=== PATIENT | female | born 1935 | race Caucasian/White ===

== ENCOUNTER 2017-01-17 07:03 | Day surgery (SDC) | payer MEDICARE, OTHER ==
[~2017-01-17 07:03] MED LIST: BUPIVACAINE HCL 0.75% INJ/PF (7.5 MG/1 ML) 10 ML SDV OS PRN; LIDOCAINE 4% INJ/PF (40 MG/ML) 5 ML AMPUL OS PRN; MIDAZOLAM 2 MG/2 ML INJ ONE
[2017-01-17] MEDS ORDERED: EPINEPHRINE INJ/PF 1 MG/1 ML AMPULE ONE (07:13)
[2017-01-17] MEDS ORDERED: CHONDR SU A NA/HYALUR INTRAOC KIT (SURGICARE) ONE (07:14)
[2017-01-17] MEDS: CYCLOPENTOLATE 0.2%/PHENYLEPHRINE 1% OPH SOLN 2 ML OS PRN ×3 (07:52→08:12)
[2017-01-17] MEDS: TROPICAMIDE 1% OPH SOLN 3 ML OS PRN ×3 (07:52→08:12)
[2017-01-17] MEDS: BESIFLOXACIN HCL 0.6% OPH SUSP 5 ML BOTTLE OS PRN ×3 (07:52→09:00)
[2017-01-17] MEDS: LIDOCAINE 3.5% OPH GEL/PF 1 ML/TUBE OS PRN ×2 (07:53→08:12)
[2017-01-17] MEDS: KETOROLAC TROMETHAMINE 0.45% 4 DROP/0.4 ML DROPERETTE OS PRN ×2 (07:53→09:17)
--- NOTE | 2017-01-17 09:13 | [facility] DISCHARGE SUMMARY E ---
[facility] Discharge Summary NAME: SHADE QUICK AGE: 81Y ADMITTED: 01/17/2017 DISCHARGED: 01/17/2017 FINAL DIAGNOSIS: Cataract, left eye. HOSPITAL COURSE: The patient is an 81-year-old lady who underwent uneventful cataract extraction with intraocular lens implant, left eye, on 01/17/2017. She will be discharged to home. She was instructed to resume preoperative medications, to take Tylenol as needed for discomfort, to keep her eye shielded, to use Besivance, Durezol and Ilevro at 3 p.m. and 8 p.m., and to follow up in my office in 1 day. DICTATING PHYSICIAN: MITCH BOWDEN M.D. [id number] PHY#: [id number] ID: [id number] JOB#: [id number] ACCT: [id number] cc:MITCH BOWDEN M.D. >
--- NOTE | 2017-01-17 09:14 | [facility] OPERATIVE REPORT E ---
[facility] Operative Report NAME: SHADE QUICK AGE: 81Y DATE OF SURGERY: 01/17/2017 ROOM: PREOPERATIVE DIAGNOSIS: Cataract, left eye. POSTOPERATIVE DIAGNOSIS: Cataract, left eye. PROCEDURE PERFORMED: Phacoemulsification with posterior chamber intraocular lens, left eye. SURGEON: MITCH BOWDEN M.D. ANESTHESIA: Topical with MAC. INDICATIONS FOR SURGERY: Difficulty reading captions on TV. Best corrected visual acuity 20/70. PROCEDURE: The patient was brought to the Operating Room and placed on the operative table. Following tetracaine drops, topical anesthesia was administered. This consisted of instrument wipe pledgets soaked in a solution of 4% Xylocaine mixed with 0.75% Marcaine in a 1:2 ratio. A 2 x 1 cm pledget was placed in the superior fornix. A 1 x 1 cm pledget was placed in the inferior fornix. The eye was patched shut for 5 minutes. The patch was removed. The eye was sterilely prepped and draped in the usual manner. Lid speculum was placed in the eye. The pledgets were removed and 4-0 black silk sutures were placed around the superior and the inferior rectus muscles to be used as traction. A conjunctival peritomy was made at the 10 o'clock position. Hemostasis was obtained with bipolar cautery. A posterior limbal groove was created using a crescent knife and dissected anteriorly towards the cornea. A sharp point blade was used to create a paracentesis site at the 2 o'clock position. A 2.4 mm keratome was used to enter the anterior chamber through the groove. Viscoelastic was injected into the anterior chamber. An anterior capsulotomy was performed using Utrata forceps in a capsulorrhexis fashion. Hydrodissection and hydrodelineation were performed. Phacoemulsification was performed in [id number]-gdu-[id number] technique. A total of 54 seconds phaco time was used. Following this, the I/A unit was used to remove residual cortex. Viscoelastic was injected into the capsular bag. Intraocular lens model SN60WF, 21.0 diopters, serial number [id number], was placed in the capsular bag. The I/A unit was used to remove residual viscoelastic. The wound was seen to be watertight under high and low pressure, and no sutures were placed. The intraocular lens was well centered. The pressure was adjusted in the eye to normal pressure. The 4-0 black silk sutures and lid speculum were removed. The eye was shielded after Besivance drops were placed. The patient tolerated the procedure well and was sent to the Recovery Room in good condition. DICTATING PHYSICIAN: MITCH BOWDEN M.D. [id number] PHY#: [id number] ID: [id number] JOB#: [id number] ACCT: [id number] cc:MITCH BOWDEN M.D. >
== END 2017-01-17 10:00 | disposition home or self-care (01) ==
LOC: SC 07:03
PROVIDERS: ATTEND Ophthalmology
PROC: 08RK3JZ Replacement of Left Lens with Synthetic Substitute, Percutaneous Approach (ICD-10-PCS; principal; 2017-01-17 08:15)
DX: H25.812 Combined forms of age-related cataract, left eye (principal); Z88.5 Allergy status to narcotic agent
CPT/HCPCS: 66984; V2632; J2250; J3490 ×3; A9270 ×2; J0171; 142

== ENCOUNTER 2017-02-14 07:07 | Day surgery (SDC) | payer MEDICARE, OTHER ==
[~2017-02-14 07:07] MED LIST changes: +BUPIVACAINE HCL 0.75% INJ/PF (7.5 MG/1 ML) 10 ML SDV OD PRN; -BUPIVACAINE HCL 0.75% INJ/PF (7.5 MG/1 ML) 10 ML SDV OS PRN; +KETOROLAC TROMETHAMINE 0.45% 4 DROP/0.4 ML DROPERETTE OD PRN; +LIDOCAINE 4% INJ/PF (40 MG/ML) 5 ML AMPUL OD PRN; -LIDOCAINE 4% INJ/PF (40 MG/ML) 5 ML AMPUL OS PRN; -MIDAZOLAM 2 MG/2 ML INJ ONE
[2017-02-14] MEDS ORDERED: PHENYLEPHRINE/KETOROLAC 1%-0.3% 4 ML VIAL ONE (07:35)
[2017-02-14] MEDS ORDERED: LIDOCAINE 1% INJ-PF (10 MG/ML) 30 ML SDV ONE (07:35)
[2017-02-14] MEDS: TROPICAMIDE 1% OPH SOLN 3 ML OD PRN ×3 (07:41→08:01)
[2017-02-14] MEDS: BESIFLOXACIN HCL 0.6% OPH SUSP 5 ML BOTTLE OD PRN ×4 (07:41→08:54)
[2017-02-14] MEDS: CYCLOPENTOLATE 0.2%/PHENYLEPHRINE 1% OPH SOLN 2 ML OD PRN ×3 (07:41→08:01)
[2017-02-14] MEDS: TETRACAINE HCL 0.5% OPH SOLN 0.6 ML DROPERETTE OD PRN ×2 (07:42→08:01)
[2017-02-14] MEDS ORDERED: MIDAZOLAM 2 MG/2 ML INJ ONE (08:05)
[2017-02-14] MEDS: CHONDR SU A NA/HYALUR INTRAOC KIT (SURGICARE) ONE ×2 (08:44)
--- NOTE | 2017-02-14 09:13 | [facility] OPERATIVE REPORT E ---
[facility] Operative Report NAME: SHADE QUICK AGE: 81Y DATE OF SURGERY: 02/14/2017 ROOM: PREOPERATIVE DIAGNOSIS: Cataract, right eye. POSTOPERATIVE DIAGNOSIS: Cataract, right eye. PROCEDURE PERFORMED: Phacoemulsification with posterior chamber intraocular lens, right eye. SURGEON: MITCH BOWDEN M.D. ANESTHESIA: Topical with MAC. INDICATIONS FOR SURGERY: Difficulty with depth perception and imbalance following cataract surgery in the left eye. DESCRIPTION OF PROCEDURE: The patient was brought to the Operating Room and placed on the operative table. Following tetracaine drops, topical anesthesia was administered. This consisted of instrument wipe pledgets soaked in a solution of 4% Xylocaine mixed with 0.75% Marcaine in a 1:2 ratio. A 2 x 1 cm pledget was placed in the superior fornix. A 1 x 1 cm pledget was placed in the inferior fornix. The eye was patched shut for 5 minutes. The patch was removed. The eye was sterilely prepped and draped in the usual manner. Lid speculum was placed in the eye. The pledgets were removed. 4-0 black silk sutures were placed around the superior and the inferior rectus muscles to be used as traction. A conjunctival peritomy was made at the 10 o'clock position. Hemostasis was obtained with bipolar cautery. A posterior limbal groove was created using a crescent knife and dissected anteriorly towards the cornea. A sharp point blade was used to create a paracentesis site at the 2 o'clock position. A 2.4 mm keratome was used to enter the anterior chamber through the groove. Viscoelastic was injected into the anterior chamber. An anterior capsulotomy was performed using Utrata forceps in a capsulorrhexis fashion. Hydrodissection and hydrodelineation were performed. Phacoemulsification was performed in vcrhbj-ten-yymzssf technique. A total of 50 seconds phaco time was used. Following this, the I/A unit was used to remove residual cortex. Viscoelastic was injected into the capsular bag. Intraocular lens model SN60WF, 21.0 diopters, serial number [id number] was placed in the capsular bag. The I/A unit was used to remove residual viscoelastic. The wound was seen to be watertight under high and low pressure, and no sutures were placed. The intraocular lens was well centered. The pressure was adjusted in the eye to normal pressure. The 4-0 black silk sutures and lid speculum were removed. The eye was shielded after Besivance drops were placed. The patient tolerated the procedure well and was sent to the Recovery Room in good condition. DICTATING PHYSICIAN: MITCH BOWDEN M.D. [id number] PHY#: [id number] ID: [id number] JOB#: [id number] ACCT: [id number] cc:MITCH BOWDEN M.D. >
--- NOTE | 2017-02-14 09:13 | [facility] DISCHARGE SUMMARY E ---
[facility] Discharge Summary NAME: SHADE QUICK AGE: 81Y ADMITTED: 02/14/2017 DISCHARGED: 02/14/2017 HOSPITAL COURSE: The patient is an 81-year-old lady who underwent uneventful cataract extraction with intraocular lens implant right eye on 02/14/2017. She will be discharged to home. She is instructed to resume preoperative medications, to take Tylenol as needed for discomfort, to keep her eye shielded, to use Besivance, Durezol, and Ilevro at 3 p.m. and 8 p.m., and to follow up in my office in 1 day. DICTATING PHYSICIAN: MITCH BOWDEN M.D. [id number] PHY#: [id number] ID: [id number] JOB#: [id number] ACCT: [id number] cc:MITCH BOWDEN M.D. >
== END 2017-02-14 09:38 | disposition home or self-care (01) ==
LOC: SC 07:07
PROVIDERS: ATTEND Ophthalmology
PROC: 08RJ3JZ Replacement of Right Lens with Synthetic Substitute, Percutaneous Approach (ICD-10-PCS; principal; 2017-02-14 08:30)
DX: H25.811 Combined forms of age-related cataract, right eye (principal); Z96.1 Presence of intraocular lens; Z86.73 Personal history of transient ischemic attack (TIA), and cerebral infarction without residual deficits; I10 Essential (primary) hypertension; E07.9 Disorder of thyroid, unspecified; Z79.899 Other long term (current) drug therapy; Z79.82 Long term (current) use of aspirin; Z79.1 Long term (current) use of non-steroidal anti-inflammatories (NSAID); Z85.038 Personal history of other malignant neoplasm of large intestine; Z90.49 Acquired absence of other specified parts of digestive tract
CPT/HCPCS: 66984; V2632; J2250; J3490 ×4; A9270; C9447; 142

== ENCOUNTER → 2017-08-16 | Outpatient (CLI) | payer MEDICARE, OTHER ==
--- NOTE | 2017-08-16 13:34 | WOMENS IMAGING REPORT ---
EXAM DESCRIPTION: BONE DENSITY HIP/SPINE COMPLETED DATE/TIME: 08/16/2017 1:19 pm REASON FOR STUDY: OSTEOPOROSIS Z12.31 ENCNTR SCREEN MAMMOGRAM FOR MALIGNANT NEOPLASM OF ARTHUR M81.0 AGE-RELATED OSTEOPOROSIS W/O CURRENT PATHOLOGICAL FRAC COMPARISON: December 2013 TECHNIQUE: Dual-Energy X-ray Absorptiometry (DEXA) of the AP Spine and Hip. LIMITATIONS: None. FINDINGS: LUMBAR SPINE: The bone mineral density (BMD) measured from L1-L4 in the AP projection correlates with a T-score of -0.1, which is normal as defined by the World Health Organization. 7.6% increase as compared to the previous study HIP: The bone mineral density (BMD) measured in the left hip correlates with a T-score of -3.1, which is o steoporosis as defined by the World Health Organization. -0.5% decrease as compared to the previous study IMPRESSION: 1. LUMBAR SPINE: Normal 2. HIP: Osteoporosis COMMENT: The World Health Organization defines low BMD as follows: T-score: Normal: Greater than -1.0 Osteopenia: Between -1.0 and -2.5 Osteoporosis: Less than -2.5 without fractures Established osteoporosis: Less than -2.5 with fractures In general, you may wish to consider: Diagnosis Treatment Follow-up DEXA Normal BMD Prevention 2-3 years Osteopenia Prevention/Therapy 1-2 years Osteoporosis Therapy Yearly TECHNICAL DOCUMENTATION: JOB ID: [id number] [employer]- All Rights Reserved Reading location - IP/workstation name: [email or web address]
--- NOTE | 2017-08-16 17:01 | WOMENS IMAGING REPORT ---
EXAM DESCRIPTION: 3D SCREENING MAMMO BILAT COMPLETED DATE/TIME: 08/16/2017 1:19 pm REASON FOR STUDY: SCREENING MAMMO Z12.31 ENCNTR SCREEN MAMMOGRAM FOR MALIGNANT NEOPLASM OF ARTHUR M81. 0 AGE-RELATED OSTEOPOROSIS W/O CURRENT PATHOLOGICAL FRAC COMPARISON: 2010 to 2014 TECHNIQUE: Standard craniocaudal and mediolateral oblique views of each breast recorded using digita l acquisition and breast tomosynthesis. LIMITATIONS: None. FINDINGS: No masses, calcifications or architectural distortion. No areas of suspicion. Read with the assistance of CAD. .[facility] - R2 Cenova Version 1.3 .[facility] - R2 Cenova Version 1.3 .[facility] - R2 Cenova Version 2.4 .[facility] [place]2 Cenova Version 2.4 .[facility] - R2 Organ Grinder Version 9.2 IMPRESSION: NORMAL MAMMOGRAM. BIRADS 1. BREAST DENSITY: b. There are scattered areas of fibroglandular density. BIRAD: 1 NEGATIVE RECOMMENDATION: ROUTINE SCREENING COMMENT: The patient has been notified of the results by letter per SA requirements. Additional no tification policies are in place for contacting patient with suspicious or incomplete findings. Quality ID #[id number]: The [employer] recommends an annual screening mammogram for women aged 40 years or over. This facility utilizes a reminder system to ensure that all patients receive reminder letters, and/or direct phone calls for appointments. This includes reminders for routine scr eening mammograms, diagnostic mammograms, or other Breast Imaging Interventions when appropriate. Th is patient will be placed in the appropriate reminder system. The [employer] (ACR) has developed recommendations for screening MRI of the breast s in certain patient populations, to be used in conjunction with mammography. Breast MRI surveillanc e may be appropriate for women with more than 20% lifetime risk of developing breast cancer as deter mined by genetic testing, significant family history of the disease, or history of mantle radiation f or Hodgkins Disease. ACR Practice Guidelines 2008. DBT Technology DBT is a type of tomographic mammography. With conventional mammography, overlapping breast tissue ma y make lesions difficult to detect, even with good compression. DBT uses an x-ray tube that rotates a round the breast, taking images at different angles. These images are then combined to create thin sl ices of the breast that the radiologist can view as a 3D reconstruction. The Clever[employer] unit can perform full-field digital mammograms (2D imaging); or DBT (3D imaging); or both, in a combination mode that quickly performs both the mammogram and the tomosynthesis scan while the breast is still compressed. PQRS 6045F: Fluoroscopic imaging is not utilized for breast tomosynthesis. TECHNICAL DOCUMENTATION: FINDING NUMBER: (1) ASSESSMENT: (1) JOB ID: [id number] [employer]- All Rights Reserved Reading location - IP/workstation name: [email or web address]
== END ==
LOC: WI 12:40
PROVIDERS: ATTEND Internal Medicine
DX: Z12.31 Encounter for screening mammogram for malignant neoplasm of breast (principal); M81.0 Age-related osteoporosis without current pathological fracture
CPT/HCPCS: 77063; 77067; 77080

== ENCOUNTER → 2018-10-11 | Outpatient (CLI) | payer MEDICARE, OTHER | LOC: WI 09:09 | PROVIDERS: ATTEND Internal Medicine | DX: Z12.31 Encounter for screening mammogram for malignant neoplasm of breast (principal); R41.3 Other amnesia | CPT/HCPCS: 77063; 77067 ==

== ENCOUNTER 2019-11-07 09:47 | Emergency (ER) | payer MEDICARE ==
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
[2019-11-07 10:36] LABS: ABSOLUTE EOSINOPHILS # (AUTO) 0.1 10^3/uL (0.0-0.6); ABSOLUTE LYMPHOCYTES (AUTO) 0.9 10^3/uL (0.5-4.7); ABSOLUTE MONOCYTES (AUTO) 0.3 10^3/uL (0.1-1.4); ABSOLUTE NEUT (AUTO) 5.1 10^3/uL (1.7-8.2); BASOPHILS % (AUTO) 0.4 % (0-2); EOSINOPHILS % (AUTO) 2.2 % (0-6); HEMATOCRIT 38.3 % (36.0-47.0); HEMOGLOBIN 13.1 g/dL (12.0-15.5); LYMPHOCYTES % (AUTO) 13.3 % (13-45); MEAN CORPUSCULAR HGB CONC 34.1 g/dL (32.0-36.0); MEAN CORPUSCULAR VOLUME 88 fl (80-97); MONOCYTES % (AUTO) 5.4 % (3-13); PLATELET COUNT 140 10^3/uL (150-450); RED BLOOD COUNT 4.36 10^6/uL (3.72-5.28); RED CELL DISTRIBUTION WIDTH 14.4 % (11.5-14.0); SEGMENTED NEUTROPHILS % (AUTO) 78.7 % (42-78); TOTAL CELLS COUNTED % (AUTO) 100 %; WHITE BLOOD COUNT 6.4 10^3/uL (4.0-10.5)
[2019-11-07 10:45] LABS: ANION GAP 6 (5-19); BLOOD UREA NITROGEN 35 mg/dL (7-20); CALCIUM 9.5 mg/dL (8.4-10.2); CARBON DIOXIDE 24 mmol/L (22-30); CHLORIDE 111 mmol/L (98-107); GLUCOSE 117 mg/dL (75-110); POTASSIUM 4.4 mmol/L (3.6-5.0)
[2019-11-07 11:16] LABS: APPEARANCE,URINE CLEAR; BILIRUBIN,URINE NEGATIVE (NEGATIVE); COLOR,URINE YELLOW; GLUCOSE, URINE NEGATIVE (NEGATIVE); KETONES,URINE NEGATIVE (NEGATIVE); PROTEIN,URINE NEGATIVE (NEGATIVE); URINE SPECIFIC GRAVITY 1.018; UROBILINOGEN,URINE NEGATIVE mg/dL (<2.0)
--- NOTE | 2019-11-07 11:39 | RADIOLOGY REPORT (SQ) ---
EXAM DESCRIPTION: CT HEAD WITH IMAGES COMPLETED DATE/TIME: 11/07/2019 11:18 am REASON FOR STUDY: AMS behavioral warren r/o SDH COMPARISON: CT brain 11/04/2010 TECHNIQUE: Axial images acquired through the brain with intravenous contrast. Images reviewed with b one, brain and subdural windows. Additional sagittal and coronal reconstructions were generated. Lexii ges stored on PACS. All CT scanners at this facility use dose modulation, iterative reconstruction, and/or weight based d osing when appropriate to reduce radiation dose to as low as reasonably achievable (ALARA). [facility]: Dose Right [facility]: CareDose [facility]: Dose Right [facility]: Teradose 4D [facility]: Associated Content CONTRAST TYPE AND DOSE: contrast/concentration: Isovue 350.00 mmol/ml; Total Contrast Delivered: 50. 0 ml; Total Saline Delivered: 50.0 ml RENAL FUNCTION: Creatinine 1.3 RADIATION DOSE: CT Rad equipment meets quality standard of care and radiation dose reduction techniq ues were employed. CTDIvol: 53.2 mGy. DLP: 2034 mGy-cm.. LIMITATIONS: None. FINDINGS: VENTRICLES: Normal size and contour. CEREBRUM: No CT evidence of acute large territory ischemic change, acute intracranial hemorrhage, mas s effect, or midline shift. Old small left posterior temporal cortical infarct on axial image 21, sagittal image 52. Minimal age-appropriate deep periventricular white matter disease. CEREBELLUM: No masses. No hemorrhage. No alteration of density. No evidence for acute infarction. No enhancing lesions. EXTRA-AXIAL SPACES: No fluid collections. No enhancing lesions. ORBITS AND GLOBE: No intra- or extraconal masses. Post cataract surgery CALVARIUM: No fracture. PARANASAL SINUSES: No fluid or mucosal thickening. SOFT TISSUES: No mass or hematoma. OTHER: No other significant finding. IMPRESSION: No acute findings. No CT evidence of acute or chronic extra-axial fluid collection EVIDENCE OF ACUTE STROKE: NO. TECHNICAL DOCUMENTATION: JOB ID: [id number] Quality ID # [id number]: Final reports with documentation of one or more dose reduction techniques (e.g., Au tomated exposure control, adjustment of the mA and/or kV according to patient size, use of iterative reconstruction technique) 2010 [employer]- All Rights Reserved Reading location - IP/workstation name: [email or web address]
[2019-11-07 12:08] VITALS: BP 190/86
== END 2019-11-07 12:05 | disposition home or self-care (01) ==
LOC: ER 09:47
DX: F03.91 Unspecified dementia, unspecified severity, with behavioral disturbance (principal); Z63.4 Disappearance and death of family member; I10 Essential (primary) hypertension; Z87.440 Personal history of urinary (tract) infections; Z88.6 Allergy status to analgesic agent; Z88.5 Allergy status to narcotic agent
CPT/HCPCS: 36415; 70460; 80048; 81001; 84443; 85025; 99285

== ENCOUNTER 2019-11-22 10:38 | Emergency (ER) | payer MEDICARE ==
[2019-11-22 11:29] LABS: ABSOLUTE EOSINOPHILS # (AUTO) 0.1 10^3/uL (0.0-0.6); ABSOLUTE LYMPHOCYTES (AUTO) 0.8 10^3/uL (0.5-4.7); ABSOLUTE MONOCYTES (AUTO) 0.4 10^3/uL (0.1-1.4); ABSOLUTE NEUT (AUTO) 5.5 10^3/uL (1.7-8.2); APPEARANCE,URINE CLEAR; BASOPHILS % (AUTO) 0.4 % (0-2); BILIRUBIN,URINE NEGATIVE (NEGATIVE); COLOR,URINE YELLOW; EOSINOPHILS % (AUTO) 1.4 % (0-6); GLUCOSE, URINE NEGATIVE (NEGATIVE); HEMATOCRIT 38.7 % (36.0-47.0); KETONES,URINE NEGATIVE (NEGATIVE); LEUKOCYTE ESTERASE,URINE NEGATIVE (NEGATIVE); LYMPHOCYTES % (AUTO) 12.1 % (13-45); MEAN CORPUSCULAR HEMOGLOBIN 29.7 pg (27.0-33.4); MEAN CORPUSCULAR HGB CONC 33.5 g/dL (32.0-36.0); MEAN CORPUSCULAR VOLUME 89 fl (80-97); MONOCYTES % (AUTO) 6.3 % (3-13); NITRITE,URINE NEGATIVE (NEGATIVE); PLATELET COUNT 151 10^3/uL (150-450); PROTEIN,URINE 30 mg/dL (NEGATIVE); RED BLOOD COUNT 4.36 10^6/uL (3.72-5.28); RED CELL DISTRIBUTION WIDTH 14.6 % (11.5-14.0); SEGMENTED NEUTROPHILS % (AUTO) 79.8 % (42-78); TOTAL CELLS COUNTED % (AUTO) 100 %; URINE SPECIFIC GRAVITY 1.021; WHITE BLOOD COUNT 6.9 10^3/uL (4.0-10.5)
[2019-11-22 11:48] LABS: ACETAMINOPHEN < 10 ug/mL (10-30); ALBUMIN 4.1 g/dL (3.5-5.0); ALCOHOL < 10 mg/dL (NONE DETECTED); ALKALINE PHOSPHATASE 65 U/L (38-126); ANION GAP 6 (5-19); ASPARTATE AMINO TRANSFERASE 22 U/L (14-36); BILIRUBIN,TOTAL 0.6 mg/dL (0.2-1.3); BLOOD UREA NITROGEN 39 mg/dL (7-20); CALCIUM 9.4 mg/dL (8.4-10.2); CARBON DIOXIDE 25 mmol/L (22-30); CHLORIDE 110 mmol/L (98-107); GLUCOSE 102 mg/dL (75-110); POTASSIUM 4.6 mmol/L (3.6-5.0); TOTAL PROTEIN 6.8 g/dL (6.3-8.2)
--- NOTE | 2019-11-22 12:13 | RADIOLOGY REPORT (SQ) ---
EXAM DESCRIPTION: CHEST SINGLE VIEW IMAGES COMPLETED DATE/TIME: 11/22/2019 11:44 am REASON FOR STUDY: Altered mental status COMPARISON: None. EXAM PARAMETERS: NUMBER OF VIEWS: One view. TECHNIQUE: Single frontal radiographic view of the chest acquired. RADIATION DOSE: NA LIMITATIONS: None. FINDINGS: LUNGS AND PLEURA: There is some patchy opacification in the medial left base. MEDIASTINUM AND HILAR STRUCTURES: No masses. Contour normal. HEART AND VASCULAR STRUCTURES: Heart normal in size. Normal vasculature. BONES: No acute findings. HARDWARE: None in the chest. OTHER: No other significant finding. IMPRESSION: Cannot exclude airspace disease in the medial left base, atelectasis versus pneumonia. TECHNICAL DOCUMENTATION: JOB ID: [id number] 2010 [employer]- All Rights Reserved Reading location - IP/workstation name: [email or web address]
--- NOTE | 2019-11-22 13:48 | ER Document Report ---
Entered by SHADE GASCA SCRIBE 11/22/19 1058 Acting as scribe for:ALEX GRAHAM MD ED General - General Stated Complaint: PSYCHS Time Seen by Provider: 11/22/19 10:43 Primary Care Provider: HENRY BROWNE MD [Primary Care Provider] - Follow up as needed Information source: Patient, Emergency Med Personnel, [facility] Records Cannot obtain history due to: Dementia Notes: This 83 year old female patient presents to the emergency department today with arrival by EMS. History is obtained by [facility] records and EMS personnel due to the patient having dementia. EMS states the patient grabbed her daughter's wrist captain fishing vessel and would not let go. Patient's daughter called for EMS for worsening altered mental status. Patient was recently treated for a UTI and finished her treatment for this. TRAVEL OUTSIDE OF THE [place] IN LAST 30 DAYS: No - Related Data Allergies/Adverse Reactions: codeine [Codeine] Allergy (Intermediate, Verified 11/22/19 11:03) HIVES AND RASH Past Medical History - General Information source: Patient, Emergency Med Personnel, [facility] Records Cannot obtain history due to: Dementia - Social History Smoking Status: Unknown if Ever Smoked Chew tobacco use (# tins/day): No Frequency of alcohol use: None Drug Abuse: None Family History: None Patient has homicidal ideation: No - Past Medical History Cardiac Medical History: Reports: Hx Hypertension - MEDICATION HYPOTENSION Neurological Medical History: Reports: Hx Cerebrovascular Accident - oct 2014 Endocrine Medical History: Reports: Hx Hyperthyroidism Psychiatric Medical History: Reports: Hx Dementia Past Surgical History: Reports: Hx Colostomy, Hx Hysterectomy, Hx Kidney (Renal Surgery) - 1 kidney Review of Systems - Review of Systems -: Yes ROS unobtainable due to patient's medical condition Physical Exam - Vital signs Vitals: Temp 98.5 F 11/22/19 10:50 - General General appearance: Appears well, Alert - HEENT Head: Normocephalic, Atraumatic Eyes: Normal Pupils: PERRL - Respiratory Respiratory status: No respiratory distress Chest status: Nontender Breath sounds: Normal Chest palpation: Normal - Cardiovascular Rhythm: Regular Heart sounds: Normal auscultation Murmur: No - Abdominal Inspection: Normal Distension: No distension Bowel sounds: Normal Tenderness: Nontender - Extremities General upper extremity: Normal inspection. No: Edema General lower extremity: Normal inspection. No: Edema - Neurological Cognition: Other - Demented Speech: Normal Sensory: Normal - Psychological Associated symptoms: Normal affect, Normal mood - Skin Skin Temperature: Warm Skin Moisture: Dry Skin Color: Normal Course - Re-evaluation Re-evalutation: 07 patient resting comfortably not showing any signs of distress at this time. 13:23 11/22/19 13:43 Patient resting comfortably not showing any signs of distress there is no fever or chills. Patient saturations have been 97 to 100% with a normal respiratory rate. Patient is afebrile and has a normal white blood cell count at this time. Nonetheless in this pandemic season that we are in for sanchez 19 virus will check patient for the coronavirus as well as place patient on Zithromax 5-day course and further evaluations by her primary care physician. Patient will be instructed to and her daughter will be instructed on self quarantine until further instructions. - Vital Signs Vital signs: Temp Pulse Resp BP Pulse Ox 98.5 F 85 15 146/62 H 98 11/22/19 10:58 11/22/19 10:58 11/22/19 10:58 11/22/19 10:58 11/22/19 10:58 11/22/19 13:24 Vital signs stable - Laboratory Result Diagrams: 11/22/19 11:18 11/22/19 11:18 Laboratory results interpreted by me: 11/22/19 11/22/19 11/22/19 11:18 11:18 11:18 RDW 14.6 H Lymph % (Auto) 12.1 L Seg Neutrophils % 79.8 H Chloride 110 H BUN 39 H Creatinine 1.40 H Est GFR ( Amer) 43 L Est GFR (MDRD) Non-Af 36 L Lipase 308.4 H Urine Protein 30 H Urine Urobilinogen 2.0 H Urine Ascorbic Acid 40 H Acetaminophen < 10 L Laboratories show elevated creatinine of 1.4. Otherwise no significant acute process patient appears dehydrated. - Diagnostic Test Radiology reviewed: Image reviewed, Reports reviewed Radiology results interpreted by me: 11/22/19 13:43 Chest x-ray read by radiologist shows questionable left medial infiltrate versus atelectasis or airspace disease. - EKG Interpretation by Me Additional EKG results interpreted by me: 11/22/19 13:40 Twelve-lead EKG shows normal sinus rhythm rate of 75 nonspecific T wave abnormalities lateral leads. Discharge - Discharge Clinical Impression: Dementia, Dehydration, Upper respiratory infection, Suspected COVID-19 virus infection Condition: Stable Disposition: HOME, SELF-CARE Instructions: COVID-19 Guidance for Persons Under Investigation, Upper Respiratory Illness ([facility]) Prescriptions: Azithromycin [Zithromax 250 mg Tablet] 250 mg PO ASDIR PRN #6 tablet PRN Reason: Referrals: HENRY BROWNE MD [Primary Care Provider] - Follow up as needed I personally performed the services described in the documentation, reviewed and edited the documentation which was dictated to the scribe in my presence, and it accurately records my words and actions.
[2019-11-22 14:14] VITALS: BP 141/121
--- NOTE | 2019-11-23 10:24 | EKG REPORT ---
SEVERITY:- ABNORMAL ECG - SINUS RHYTHM NONSPECIFIC T ABNORMALITIES, LATERAL LEADS : Confirmed by: Shannan Basilio 23-Nov-2019 10:23:12
== END 2019-11-22 14:14 | disposition home or self-care (01) ==
LOC: ER 10:38
DX: F03.90 Unspecified dementia, unspecified severity, without behavioral disturbance, psychotic disturbance, mood disturbance, and anxiety (principal); E86.0 Dehydration; J06.9 Acute upper respiratory infection, unspecified; Z20.828 Contact with and (suspected) exposure to other viral communicable diseases; Z88.8 Allergy status to other drugs, medicaments and biological substances; I10 Essential (primary) hypertension; Z79.899 Other long term (current) drug therapy
CPT/HCPCS: 93005; 99285; 36415; 80307 ×2; 83690; 85025; 80053; 81001; 84484; 71045; 93010; U0003; C9803; 87635

== ENCOUNTER 2019-11-26 21:11 | Emergency (ER) | payer MEDICARE ==
--- NOTE | 2019-11-26 22:10 | ER Document Report ---
ED General - General Mode of Arrival: Medic Information source: Emergency Med Personnel TRAVEL OUTSIDE OF THE [place] IN LAST 30 DAYS: No <JOHN GOFF - Last Filed: 11/27/19 07:59> <THEODORA JAIMES - Last Filed: 11/27/19 12:48> - General Chief Complaint: Altered Mental Status Stated Complaint: ALTERED MENTAL STATUS Time Seen by Provider: 11/26/19 21:46 Primary Care Provider: HENRY BROWNE MD [Primary Care Provider] - Follow up as needed Notes: 83-year-old female patient with history of dementia presents the emergency department via EMS for aggressive behavior and worsening mental status. EMS reports that her family states that she has been very aggressive and that their primary care provider told them to send her to the emergency department if this occurs. The report that the family does not feel safe with her at home. Patient is alert to name only. She denies any complaints. She is calm and cooperative. (JOHN GOFF) - Related Data Allergies/Adverse Reactions: codeine [Codeine] Allergy (Intermediate, Verified 11/26/19 21:30) HIVES AND RASH Past Medical History - General Information source: Emergency Med Personnel - Social History Smoking Status: Unknown if Ever Smoked Frequency of alcohol use: None Drug Abuse: None Family History: None Patient has homicidal ideation: No - Past Medical History Cardiac Medical History: Reports: Hx Hypertension - MEDICATION HYPOTENSION Denies: Hx Heart Attack Pulmonary Medical History: Denies: Hx Asthma Neurological Medical History: Reports: Hx Cerebrovascular Accident - oct 2014. Denies: Hx Seizures Endocrine Medical History: Reports: Hx Hyperthyroidism GI Medical History: Denies: Hx Hepatitis, Hx Hiatal Hernia, Hx Ulcer Psychiatric Medical History: Reports: Hx Dementia Infectious Medical History: Denies: Hx Hepatitis Past Surgical History: Reports: Hx Colostomy, Hx Hysterectomy, Hx Kidney (Renal Surgery) - 1 kidney. Denies: Hx Mastectomy, Hx Open Heart Surgery, Hx Pacemaker <JOHN GOFF - Last Filed: 11/27/19 07:59> Review of Systems - Review of Systems Constitutional: No symptoms reported EENT: No symptoms reported Cardiovascular: No symptoms reported Respiratory: No symptoms reported Gastrointestinal: No symptoms reported Genitourinary: No symptoms reported Female Genitourinary: No symptoms reported Musculoskeletal: No symptoms reported Skin: No symptoms reported Hematologic/Lymphatic: No symptoms reported Neurological/Psychological: Dementia <JOHN GOFF - Last Filed: 11/27/19 07:59> Physical Exam <JOHN GOFF - Last Filed: 11/27/19 07:59> - Vital signs Vitals: Temp Pulse Resp BP Pulse Ox 98.3 F 69 20 180/68 H 98 11/26/19 22:33 11/26/19 22:33 11/26/19 22:33 11/26/19 22:33 11/26/19 22:33 - Notes Notes: PHYSICAL EXAMINATION: GENERAL: Pleasantly confused, no acute distress. Hard of hearing. HEAD: Atraumatic, normocephalic. EYES: Pupils equal round and reactive to light, extraocular movements intact, conjunctiva are normal. ENT: Nares patent, oropharynx clear without exudates. Moist mucous membranes. NECK: Normal range of motion, supple without lymphadenopathy LUNGS: Breath sounds clear to auscultation bilaterally and equal. No wheezes rales or rhonchi. HEART: Regular rate and rhythm without murmurs ABDOMEN: Soft, nontender, nondistended abdomen. No guarding, no rebound. No masses appreciated. Colostomy present. Female : deferred Musculoskeletal: Normal range of motion, no pitting or edema. No cyanosis. NEUROLOGICAL: Cranial nerves grossly intact. Normal speech. Normal sensory, motor exams PSYCH: Normal mood, normal affect. SKIN: Warm, Dry, normal turgor, no rashes or lesions noted. (JOHN GOFF) Course - Laboratory Result Diagrams: 11/26/19 23:08 11/26/19 23:08 - Diagnostic Test Radiology reviewed: Image reviewed, Reports reviewed <JOHN GOFF - Last Filed: 11/27/19 07:59> - Laboratory Result Diagrams: 11/26/19 23:08 11/26/19 23:08 <THEODORA JAIMES - Last Filed: 11/27/19 12:48> - Re-evaluation Re-evalutation: Laboratory 11/26/19 11/26/19 11/27/19 23:08 23:08 01:45 WBC 5.3 RBC 3.82 Hgb 11.4 L Hct 34.0 L MCV 89 MCH 29.9 MCHC 33.6 RDW 15.0 H Plt Count 135 L Lymph % (Auto) 26.5 [place] % (Auto) 9.2 Eos % (Auto) 3.3 Baso % (Auto) 0.5 Absolute Neuts (auto) 3.2 Absolute Lymphs (auto) 1.4 Absolute Monos (auto) 0.5 Absolute Eos (auto) 0.2 Absolute Basos (auto) 0.0 Seg Neutrophils % 60.5 Sodium 139.8 Potassium 4.0 Chloride 110 H Carbon Dioxide 25 Anion Gap 5 BUN 40 H Creatinine 1.36 H Est GFR ( Amer) 45 L Est GFR (MDRD) Non-Af 37 L Glucose 90 Calcium 9.0 Total Bilirubin 0.3 Direct Bilirubin 0.0 Neonat Total Bilirubin Not Reportable Neonat Direct Bilirubin Not Reportable Neonat Indirect Bili Not Reportable AST 19 ALT 13 Alkaline Phosphatase 60 Total Protein 6.0 L Albumin 3.5 Urine Color YELLOW Urine Appearance CLEAR Urine pH 5.0 Ur Specific [place] 1.020 Urine Protein NEGATIVE Urine Glucose (UA) NEGATIVE Urine Ketones NEGATIVE Urine Blood NEGATIVE Urine Nitrite (Reflex) NEGATIVE Urine Bilirubin NEGATIVE Urine Urobilinogen 2.0 H Leukocyte Esterase Rfl SMALL H Urine RBC (Auto) 2 U Hyaline Cast (Auto) 4 Urine WBC (Reflex) 2 Squamous Epi Cells Auto 1 Urine Ascorbic Acid 40 H Chest X-Ray 11/26/19 22:08 IMPRESSION: Unchanged retrocardiac opacity which may represent focal pneumonia. Chest x-ray shows retrocardiac opacity, this is similar to recent EKG, patient had a round of azithromycin that she finished yesterday. Patient appears well, nontoxic. Nursing staff spoke with patient's daughter who states that patient has been out of control at home. It is the daughters wish to keep patient at home as long as possible however they report it is not safe at this point due to patient's aggressive behavior. She had a mildly elevated creatinine. She was given IV fluids here in the emergency department and is medically cleared at this time. She will be awaiting consult with discharge planning/social work. (JOHN GOFF) - Vital Signs Vital signs: Temp Pulse Resp BP Pulse Ox 98.3 F 72 18 128/68 H 99 11/27/19 06:26 11/27/19 12:19 11/27/19 12:19 11/27/19 12:19 11/27/19 12:19 - Laboratory Laboratory results interpreted by me: 11/26/19 11/26/19 11/27/19 23:08 23:08 01:45 Hgb 11.4 L Hct 34.0 L RDW 15.0 H Plt Count 135 L Chloride 110 H BUN 40 H Creatinine 1.36 H Est GFR ( Amer) 45 L Est GFR (MDRD) Non-Af 37 L Total Protein 6.0 L Urine Urobilinogen 2.0 H Leukocyte Esterase Rfl SMALL H Urine Ascorbic Acid 40 H Discharge <JOHN GOFF - Last Filed: 11/27/19 07:59> <THEODORA JAIMES - Last Filed: 11/27/19 12:48> - Discharge Clinical Impression: Aggressive behavior due to dementia Condition: Stable Disposition: HOME, SELF-CARE Instructions: Dementia ([facility]) Additional Instructions: Please follow-up as instructed by social work Referrals: HENRY BROWNE MD [Primary Care Provider] - Follow up as needed
--- NOTE | 2019-11-26 22:52 | RADIOLOGY REPORT (SQ) ---
XR CHEST 1 VIEW HISTORY: Altered mental status. COMPARISON: 11/22/2019 FINDINGS: The heart size is within normal limits. There is no pulmonary vascular congestion. There is an unchanged retrocardiac opacity in the medial left lower lobe. No pleural effusions or pneumothorax. The bony structures are preserved. IMPRESSION: Unchanged retrocardiac opacity which may represent focal pneumonia.
[2019-11-26 23:23] LABS: ABSOLUTE EOSINOPHILS # (AUTO) 0.2 10^3/uL (0.0-0.6); ABSOLUTE LYMPHOCYTES (AUTO) 1.4 10^3/uL (0.5-4.7); ABSOLUTE MONOCYTES (AUTO) 0.5 10^3/uL (0.1-1.4); ABSOLUTE NEUT (AUTO) 3.2 10^3/uL (1.7-8.2); BASOPHILS % (AUTO) 0.5 % (0-2); EOSINOPHILS % (AUTO) 3.3 % (0-6); HEMOGLOBIN 11.4 g/dL (12.0-15.5); LYMPHOCYTES % (AUTO) 26.5 % (13-45); MEAN CORPUSCULAR HEMOGLOBIN 29.9 pg (27.0-33.4); MEAN CORPUSCULAR HGB CONC 33.6 g/dL (32.0-36.0); MEAN CORPUSCULAR VOLUME 89 fl (80-97); MONOCYTES % (AUTO) 9.2 % (3-13); PLATELET COUNT 135 10^3/uL (150-450); RED BLOOD COUNT 3.82 10^6/uL (3.72-5.28); SEGMENTED NEUTROPHILS % (AUTO) 60.5 % (42-78); TOTAL CELLS COUNTED % (AUTO) 100 %; WHITE BLOOD COUNT 5.3 10^3/uL (4.0-10.5)
[2019-11-26 23:44] LABS: ALBUMIN 3.5 g/dL (3.5-5.0); ALKALINE PHOSPHATASE 60 U/L (38-126); ANION GAP 5 (5-19); ASPARTATE AMINO TRANSFERASE 19 U/L (14-36); BILIRUBIN,TOTAL 0.3 mg/dL (0.2-1.3); BLOOD UREA NITROGEN 40 mg/dL (7-20); CARBON DIOXIDE 25 mmol/L (22-30); CHLORIDE 110 mmol/L (98-107); GLUCOSE 90 mg/dL (75-110)
[2019-11-27 02:08] LABS: APPEARANCE,URINE CLEAR; BILIRUBIN,URINE NEGATIVE (NEGATIVE); COLOR,URINE YELLOW; GLUCOSE, URINE NEGATIVE (NEGATIVE); KETONES,URINE NEGATIVE (NEGATIVE); PROTEIN,URINE NEGATIVE (NEGATIVE)
[2019-11-27] MEDS ORDERED: NORMAL SALINE 1000 ML 1,000 ML IV ONE (03:18)
--- NOTE | 2019-11-27 08:36 | EKG REPORT ---
SEVERITY:- BORDERLINE ECG - SINUS RHYTHM BORDERLINE R WAVE PROGRESSION, ANTERIOR LEADS BORDERLINE T ABNORMALITIES, ANT-LAT LEADS : Confirmed by: Tonya Davila MD 27-Nov-2019 08:35:44
[2019-11-27] MEDS ORDERED: LORAZEPAM 0.5 MG TABLET PO PRN (11:31)
--- NOTE | 2019-11-27 11:33 | ER Document Report ---
Doctor's Note Notes: 11/27/19 11:32 Patient seen and examined this morning. She was sitting in the room comfortably having breakfast. No significant complaints. She is obviously confused. She is continually getting up and leaving the room. I will write for some as needed Ativan until patient can be discharged. Patient's daughter is coming to get the patient around lunchtime. Social work has been on the case and has arranged for appropriate outpatient care.
[2019-11-27 12:20] VITALS: BP 128/68
== END 2019-11-27 13:10 | disposition home or self-care (01) ==
LOC: ER 21:11
DX: R41.82 Altered mental status, unspecified (principal); F03.90 Unspecified dementia, unspecified severity, without behavioral disturbance, psychotic disturbance, mood disturbance, and anxiety; Z88.8 Allergy status to other drugs, medicaments and biological substances; I10 Essential (primary) hypertension
CPT/HCPCS: 93005; 99285; 96360; 96361; 36415; 85025; 80053; 81001; 71045; 93010; J7030

== ENCOUNTER 2019-12-08 09:35 | Emergency (ER) | payer MEDICARE, OTHER ==
[2019-12-08] MEDS ORDERED: LORAZEPAM INJ 2 MG/1 ML VIAL IM ONE (11:29)
--- NOTE | 2019-12-08 11:33 | RADIOLOGY REPORT (SQ) ---
EXAM DESCRIPTION: CHEST SINGLE VIEW IMAGES COMPLETED DATE/TIME: 12/08/2019 11:02 am REASON FOR STUDY: sobr COMPARISON: 11/26/2019 EXAM PARAMETERS: NUMBER OF VIEWS: One view. TECHNIQUE: Single frontal radiographic view of the chest acquired. RADIATION DOSE: NA LIMITATIONS: None. FINDINGS: LUNGS AND PLEURA: Small left pleural effusion. No infiltrate. Right lung is clear. MEDIASTINUM AND HILAR STRUCTURES: No masses. Contour normal. HEART AND VASCULAR STRUCTURES: Heart normal in size. Normal vasculature. BONES: Old left posterior rib fractures. HARDWARE: None in the chest. OTHER: No other significant finding. IMPRESSION: Small left pleural effusion. TECHNICAL DOCUMENTATION: JOB ID: [id number] 2010 [employer]- All Rights Reserved Reading location - IP/workstation name: [email or web address]
--- NOTE | 2019-12-08 11:42 | RADIOLOGY REPORT (SQ) ---
EXAM DESCRIPTION: SHOULDER RIGHT 2 OR MORE VIEWS IMAGES COMPLETED DATE/TIME: 12/08/2019 11:33 am REASON FOR STUDY: pain COMPARISON: None. NUMBER OF VIEWS: Three views. TECHNIQUE: Internal rotation, external rotation, and Y view images acquired of the right shoulder. LIMITATIONS: None. FINDINGS: MINERALIZATION: Normal. BONES: No acute fracture. No worrisome bone lesions. JOINTS: No dislocation. VISUALIZED LUNGS AND RIBS: No pneumothorax. No rib fracture. SOFT TISSUES: No radiopaque foreign body. OTHER: No other significant finding. IMPRESSION: NEGATIVE STUDY OF THE RIGHT SHOULDER. NO RADIOGRAPHIC EVIDENCE OF ACUTE INJURY. TECHNICAL DOCUMENTATION: JOB ID: [id number] 2010 [employer]- All Rights Reserved Reading location - IP/workstation name: [email or web address]
[2019-12-08 12:36] LABS: ABSOLUTE EOSINOPHILS # (AUTO) 0.1 10^3/uL (0.0-0.6); ABSOLUTE LYMPHOCYTES (AUTO) 0.7 10^3/uL (0.5-4.7); ABSOLUTE MONOCYTES (AUTO) 0.3 10^3/uL (0.1-1.4); TOTAL CELLS COUNTED % (AUTO) 100 %
[2019-12-08 12:37] LABS: INTERNATIONAL RATION (INR) 1.03; PROTHROMBIN TIME 13.7 SEC (11.4-15.4)
[2019-12-08 12:38] LABS: PARTIAL THROMBOPLASTIN TIME 27.4 SEC (23.5-35.8)
[2019-12-08 12:39] LABS: ABSOLUTE NEUT (AUTO) 4.4 10^3/uL (1.7-8.2); BASOPHILS % (AUTO) 0.4 % (0-2); EOSINOPHILS % (AUTO) 0.9 % (0-6); HEMOGLOBIN 12.8 g/dL (12.0-15.5); LYMPHOCYTES % (AUTO) 12.8 % (13-45); MEAN CORPUSCULAR HEMOGLOBIN 29.8 pg (27.0-33.4); MEAN CORPUSCULAR HGB CONC 33.8 g/dL (32.0-36.0); MEAN CORPUSCULAR VOLUME 88 fl (80-97); MONOCYTES % (AUTO) 5.7 % (3-13); PLATELET COUNT 126 10^3/uL (150-450); RED BLOOD COUNT 4.31 10^6/uL (3.72-5.28); RED CELL DISTRIBUTION WIDTH 14.9 % (11.5-14.0); SEGMENTED NEUTROPHILS % (AUTO) 80.2 % (42-78); WHITE BLOOD COUNT 5.5 10^3/uL (4.0-10.5)
[2019-12-08 12:49] LABS: ALBUMIN 4.1 g/dL (3.5-5.0); ALKALINE PHOSPHATASE 62 U/L (38-126); ANION GAP 9 (5-19); ASPARTATE AMINO TRANSFERASE 23 U/L (14-36); BILIRUBIN,TOTAL 0.7 mg/dL (0.2-1.3); BLOOD UREA NITROGEN 29 mg/dL (7-20); CALCIUM 9.4 mg/dL (8.4-10.2); CARBON DIOXIDE 23 mmol/L (22-30); CHLORIDE 108 mmol/L (98-107); CREATINE KINASE 67 U/L (30-135); GLUCOSE 92 mg/dL (75-110); TOTAL PROTEIN 6.9 g/dL (6.3-8.2)
[2019-12-08 12:51] LABS: ACETAMINOPHEN < 10 ug/mL (10-30); ALCOHOL < 10 mg/dL (NONE DETECTED); POTASSIUM 4.3 mmol/L (3.6-5.0)
--- NOTE | 2019-12-08 13:10 | RADIOLOGY REPORT (SQ) ---
EXAM DESCRIPTION: CT HEAD WITHOUT IMAGES COMPLETED DATE/TIME: 12/08/2019 12:58 pm REASON FOR STUDY: altered mental status COMPARISON: 11/07/2019 TECHNIQUE: Axial images acquired through the brain without intravenous contrast. Images reviewed wi th bone, brain and subdural windows. Additional sagittal and coronal reconstructions were generated. Images stored on PACS. All CT scanners at this facility use dose modulation, iterative reconstruction, and/or weight based d osing when appropriate to reduce radiation dose to as low as reasonably achievable (ALARA). [facility]: Dose Right [facility]: CareDose [facility]: Dose Right [facility]: Teradose 4D [facility]: Smart interspireSubmit RADIATION DOSE: CT Rad equipment meets quality standard of care and radiation dose reduction techniq ues were employed. CTDIvol: 53.2 mGy. DLP: 1662 mGy-cm.mGy. LIMITATIONS: Motion artifact. FINDINGS: VENTRICLES: Prominent. CEREBRUM: No masses. No hemorrhage. No midline shift. Areas of low density in the white matter mos t likely due to chronic micro-vascular ischemic change. No evidence for acute infarction. CEREBELLUM: No masses. No hemorrhage. No alteration of density. No evidence for acute infarction. EXTRAAXIAL SPACES: Age-related involutional change. No fluid collections. No masses. ORBITS AND GLOBE: No intra- or extraconal masses. Normal contour of globe without masses. CALVARIUM: No fracture. PARANASAL SINUSES: No fluid or mucosal thickening. SOFT TISSUES: No mass or hematoma. OTHER: No other significant finding. IMPRESSION: Motion artifact. No obvious acute abnormality. EVIDENCE OF ACUTE STROKE: NO. TECHNICAL DOCUMENTATION: JOB ID: [id number] Quality ID # [id number]: Final reports with documentation of one or more dose reduction techniques (e.g., Au tomated exposure control, adjustment of the mA and/or kV according to patient size, use of iterative reconstruction technique) 2010 [employer]- All Rights Reserved Reading location - IP/workstation name: [email or web address]
--- NOTE | 2019-12-08 15:06 | EKG REPORT ---
SEVERITY:- ABNORMAL ECG - SINUS RHYTHM LOW VOLTAGE IN FRONTAL LEADS LA ABNORMALITY NONSPECIFIC ST-T CHANGES ANERIOR LEADS., MILD : Confirmed by: Vito Frank MD 08-Dec-2019 15:05:02
[2019-12-08 15:28] LABS: URINE AMPHETAMINES SCREEN NEGATIVE; URINE BARBITURATES SCREEN NEGATIVE; URINE BENZODIAZEPINES SCREEN NEGATIVE; URINE COCAINE SCREEN NEGATIVE; URINE MARIJUANA (THC) SCREEN NEGATIVE; URINE METHADONE SCREEN NEGATIVE; URINE PHENCYCLIDINE SCREEN NEGATIVE
[2019-12-08 15:31] LABS: APPEARANCE,URINE CLEAR; BILIRUBIN,URINE NEGATIVE (NEGATIVE); COLOR,URINE YELLOW; GLUCOSE, URINE NEGATIVE (NEGATIVE); KETONES,URINE TRACE mg/dL (NEGATIVE); LEUKOCYTE ESTERASE,URINE MODERATE (NEGATIVE); NITRITE,URINE NEGATIVE (NEGATIVE); PROTEIN,URINE NEGATIVE (NEGATIVE); URINE SPECIFIC GRAVITY 1.011; UROBILINOGEN,URINE NEGATIVE mg/dL (<2.0)
[2019-12-08] MEDS ORDERED: CEPHALEXIN 500 MG CAPSULE PO ONE (15:54)
[2019-12-08] MEDS ORDERED: CEFTRIAXONE 1 GM/D5W RTU 1 GM/50 ML RTUPB IV ONE (16:00)
[2019-12-08] MEDS ORDERED: LABETALOL HCL INJ 20 MG/4 ML DISP.SYRIN IV ONE (16:01)
[2019-12-08] MEDS ORDERED: NORMAL SALINE 250 ML IV ONE (16:02)
[2019-12-08] MEDS ORDERED: HYDRALAZINE HCL INJ/PF 20 MG/1 ML SDV IV ONE ×2 (17:40→18:18)
[2019-12-08 19:13] VITALS: BP 160/50
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
== END 2019-12-08 20:00 | disposition home or self-care (01) ==
LOC: ER 09:35
DX: F03.90 Unspecified dementia, unspecified severity, without behavioral disturbance, psychotic disturbance, mood disturbance, and anxiety (principal); N39.0 Urinary tract infection, site not specified; I10 Essential (primary) hypertension; M25.511 Pain in right shoulder; Z88.8 Allergy status to other drugs, medicaments and biological substances; Z87.891 Personal history of nicotine dependence; Z79.899 Other long term (current) drug therapy
CPT/HCPCS: 93005; 96376; 99285; 96372; 96361; 96375; 96365; 36415; 87040; 87086; 80307 ×3; 82140; 82550; 83690; 84443; 85025; 85610; 85730; 80053; 81001; 84484; 71045; 73030; 70450; 93010; A9270; J0360; J3490; J2060; J7050; J0696; 87088

== ENCOUNTER 2019-12-11 10:38 | Emergency (ER) | payer MEDICARE, OTHER ==
[2019-12-11 11:38] LABS: ABSOLUTE EOSINOPHILS # (AUTO) 0.1 10^3/uL (0.0-0.6); ABSOLUTE LYMPHOCYTES (AUTO) 0.9 10^3/uL (0.5-4.7); ABSOLUTE MONOCYTES (AUTO) 0.4 10^3/uL (0.1-1.4); ABSOLUTE NEUT (AUTO) 4.1 10^3/uL (1.7-8.2); BASOPHILS % (AUTO) 0.4 % (0-2); EOSINOPHILS % (AUTO) 2.6 % (0-6); HEMATOCRIT 36.5 % (36.0-47.0); HEMOGLOBIN 12.1 g/dL (12.0-15.5); LYMPHOCYTES % (AUTO) 15.7 % (13-45); MEAN CORPUSCULAR HEMOGLOBIN 29.8 pg (27.0-33.4); MEAN CORPUSCULAR HGB CONC 33.3 g/dL (32.0-36.0); MEAN CORPUSCULAR VOLUME 90 fl (80-97); MONOCYTES % (AUTO) 7.9 % (3-13); PLATELET COUNT 123 10^3/uL (150-450); RED BLOOD COUNT 4.07 10^6/uL (3.72-5.28); RED CELL DISTRIBUTION WIDTH 15.6 % (11.5-14.0); SEGMENTED NEUTROPHILS % (AUTO) 73.4 % (42-78); TOTAL CELLS COUNTED % (AUTO) 100 %; WHITE BLOOD COUNT 5.6 10^3/uL (4.0-10.5)
[2019-12-11 12:18] LABS: ALBUMIN 4.1 g/dL (3.5-5.0); ALKALINE PHOSPHATASE 57 U/L (38-126); ANION GAP 7 (5-19); ASPARTATE AMINO TRANSFERASE 28 U/L (14-36); BILIRUBIN,TOTAL 0.6 mg/dL (0.2-1.3); BLOOD UREA NITROGEN 36 mg/dL (7-20); CALCIUM 9.2 mg/dL (8.4-10.2); CARBON DIOXIDE 26 mmol/L (22-30); CHLORIDE 108 mmol/L (98-107); GLUCOSE 99 mg/dL (75-110); POTASSIUM 4.2 mmol/L (3.6-5.0); TOTAL PROTEIN 6.5 g/dL (6.3-8.2)
[2019-12-11 12:20] LABS: ALCOHOL < 10 mg/dL (NONE DETECTED)
[2019-12-11 13:56] LABS: APPEARANCE,URINE CLEAR; BILIRUBIN,URINE NEGATIVE (NEGATIVE); COLOR,URINE YELLOW; GLUCOSE, URINE NEGATIVE (NEGATIVE); KETONES,URINE TRACE mg/dL (NEGATIVE); LEUKOCYTE ESTERASE,URINE MODERATE (NEGATIVE); NITRITE,URINE NEGATIVE (NEGATIVE); PROTEIN,URINE 30 mg/dL (NEGATIVE); URINE SPECIFIC GRAVITY 1.016; UROBILINOGEN,URINE NEGATIVE mg/dL (<2.0)
[2019-12-11 14:22] LABS: URINE AMPHETAMINES SCREEN NEGATIVE; URINE BARBITURATES SCREEN NEGATIVE; URINE BENZODIAZEPINES SCREEN NEGATIVE; URINE COCAINE SCREEN NEGATIVE; URINE MARIJUANA (THC) SCREEN NEGATIVE; URINE METHADONE SCREEN NEGATIVE; URINE PHENCYCLIDINE SCREEN NEGATIVE
[2019-12-11] MEDS ORDERED: DIPHENHYDRAMINE HCL 50 MG/ML VIAL IV ONE (14:31)
--- NOTE | 2019-12-11 14:33 | RADIOLOGY REPORT (SQ) ---
EXAM DESCRIPTION: CT HEAD WITHOUT IMAGES COMPLETED DATE/TIME: 12/11/2019 2:17 pm REASON FOR STUDY: ams COMPARISON: CT of the head without contrast from 12/08/2019. TECHNIQUE: Axial images acquired through the brain without intravenous contrast. Images reviewed wi th bone, brain and subdural windows. Additional sagittal and coronal reconstructions were generated. Images stored on PACS. All CT scanners at this facility use dose modulation, iterative reconstruction, and/or weight based d osing when appropriate to reduce radiation dose to as low as reasonably achievable (ALARA). [facility]: Dose Right [facility]: CareDose [facility]: Dose Right [facility]: Teradose 4D [facility]: Spring Metrics RADIATION DOSE: CT Rad equipment meets quality standard of care and radiation dose reduction techniq ues were employed. CTDIvol: 55.2 mGy. DLP: 1001 mGy-cm. LIMITATIONS: None. FINDINGS: There is diffuse age-appropriate cerebral and cerebellar volume loss. The caliber of the ventricles is concordant with the degree of sulcation. The confluent areas of low-attenuation in the supratentorial periventricular and subcortical white matter are unchanged and likely represent the s equela of chronic microvascular ischemia. There is no acute intracranial hemorrhage, vascular territ orial infarct, extra-axial fluid collection, mass effect or midline shift. The argueta-white matter dif ferentiation is preserved. There is no effacement of the cerebral sulci or basal subarachnoid cister ns. The globes are aphakic. The orbits are intact. The paranasal sinuses are clear. There is no calvar ial fracture. IMPRESSION: No acute intracranial abnormality. EVIDENCE OF ACUTE STROKE: NO. COMMENT: Quality ID # [id number]: Final reports with documentation of one or more dose reduction techniques (e.g., Automated exposure control, adjustment of the mA and/or kV according to patient size, use of iterative reconstruction technique) TECHNICAL DOCUMENTATION: JOB ID: [id number] 2010 [employer]- All Rights Reserved Reading location - IP/workstation name: [email or web address]
--- NOTE | 2019-12-11 15:00 | EKG REPORT ---
SEVERITY:- BORDERLINE ECG - SINUS RHYTHM BORDERLINE T ABNORMALITIES, ANT-LAT LEADS : Confirmed by: Nick Bustamante MD 11-Dec-2019 14:59:45
[2019-12-11] MEDS ORDERED: TUBERCULIN,PURIF.PROT.DERIV. 5 TU/0.1 ML TEST 1 ML VIAL ID ONE (17:51)
[2019-12-11] MEDS ORDERED: HYDRALAZINE HCL INJ/PF 20 MG/1 ML SDV IV ONE (19:14)
--- NOTE | 2019-12-11 19:22 | ER Document Report ---
ED General - General Chief Complaint: Altered Mental Status Stated Complaint: DEMENTIA Time Seen by Provider: 12/11/19 13:00 Primary Care Provider: HENRY BROWNE MD [Primary Care Provider] - Follow up as needed Mode of Arrival: Medic Information source: Patient, Emergency Med Personnel TRAVEL OUTSIDE OF THE [place] IN LAST 30 DAYS: No - HPI Notes: Patient is brought in by ambulance. History is that patient has dementia and was becoming violent at home. She was unable to be cared for by family at home so they requested emergency department evaluation. Patient has dementia and cannot significantly contribute to history as she does not seem to comprehend the questions asked her or give rational answers. There is no obvious pain anywhere. No obvious distress. She does not appear to have a cough cold no known fevers or trauma. Her symptoms of been violent at home appear to be intermittent. It is unknown what might make them better or worse. There is obviously no radiation of this kind of symptom. This kind of symptom appears to have been severe since an ambulance was called. - Related Data Allergies/Adverse Reactions: codeine [Codeine] Allergy (Intermediate, Verified 12/08/19 18:57) HIVES AND RASH Past Medical History - General Information source: Emergency Med Personnel Cannot obtain history due to: Dementia - Social History Smoking Status: Former Smoker Chew tobacco use (# tins/day): No Frequency of alcohol use: None Drug Abuse: None Family History: None Patient has homicidal ideation: No - Past Medical History Cardiac Medical History: Reports: Hx Hypertension - MEDICATION HYPOTENSION Denies: Hx Heart Attack Pulmonary Medical History: Denies: Hx Asthma Neurological Medical History: Reports: Hx Cerebrovascular Accident - oct 2014. Denies: Hx Seizures Endocrine Medical History: Reports: Hx Hyperthyroidism GI Medical History: Denies: Hx Hepatitis, Hx Hiatal Hernia, Hx Ulcer Psychiatric Medical History: Reports: Hx Dementia Infectious Medical History: Denies: Hx Hepatitis Past Surgical History: Reports: Hx Colostomy, Hx Hysterectomy, Hx Kidney (Renal Surgery) - 1 kidney. Denies: Hx Mastectomy, Hx Open Heart Surgery, Hx Pacemaker Review of Systems - Review of Systems -: Yes ROS unobtainable due to patient's medical condition - Cannot obtain review of symptoms due to patient's dementia Physical Exam - Vital signs Vitals: Resp 17 12/11/19 11:00 Interpretation: Normal - General General appearance: Appears well, Alert In distress: None - HEENT Head: Normocephalic, Atraumatic Eyes: Normal Pupils: PERRL - Respiratory Respiratory status: No respiratory distress Chest status: Nontender Breath sounds: Normal Chest palpation: Normal - Cardiovascular Rhythm: Regular Heart sounds: Normal auscultation Murmur: No - Abdominal Inspection: Normal Distension: No distension Bowel sounds: Normal Tenderness: Nontender Organomegaly: No organomegaly - Back Back: Normal, Nontender - Extremities General upper extremity: Normal inspection, Nontender, Normal color, Normal temperature General lower extremity: Normal inspection, Nontender, Normal color, Normal temperature. No: Bibi's sign - Neurological Cognition: Confused Orientation: Disoriented to place, Disoriented to time [place] Coma Scale Eye Opening: Spontaneous [place] Coma Scale Verbal: Confused [place] Coma Scale Motor: Obeys Commands [place] Coma Scale Total: 14 Speech: Normal - Psychological Associated symptoms: Agitated - Intermittently, Flat affect - Skin Skin Temperature: Warm Skin Moisture: Dry Skin Color: Normal Course - Re-evaluation Re-evalutation: 12/11/19 19:20 Patient is brought in by ambulance for dementia with agitation and violent episodes at home. All of patient's laboratories here are essentially unremarkable as is a head CT. Patient's behavior appears to be a sequelae of her dementia. I have a requested a case management consultation to help with appropriate placement for this patient. At this time case management is told me that in discussions with family patient has a facility in [place] is considering having the patient placed there. They have requested that I obtain a tuberculosis test as well as a COVID test. These have been ordered. We will keep the patient here and continue her current medical care until we are able to ascertain an appropriate disposition. - Vital Signs Vital signs: Temp Pulse Resp BP Pulse Ox 98.6 F 79 16 215/83 H 98 12/11/19 19:07 12/11/19 19:07 12/11/19 19:07 12/11/19 19:07 12/11/19 19:07 - Laboratory Result Diagrams: 12/11/19 11:26 12/11/19 11:26 Laboratory results interpreted by me: 12/11/19 12/11/19 12/11/19 11:26 11:26 13:22 RDW 15.6 H Plt Count 123 L Chloride 108 H BUN 36 H Creatinine 1.50 H Est GFR ( Amer) 40 L Est GFR (MDRD) Non-Af 33 L Urine Protein 30 H Urine Ketones TRACE H Ur Leukocyte Esterase MODERATE H Urine Ascorbic Acid 40 H - Diagnostic Test Radiology reviewed: Image reviewed, Reports reviewed Discharge - Discharge Clinical Impression: Dementia with behavioral disturbance Qualifiers: Dementia type: unspecified type Qualified Code(s): F03.91 - Unspecified dementia with behavioral disturbance Condition: Fair Disposition: OTHER Referrals: HENRY BROWNE MD [Primary Care Provider] - Follow up as needed
[2019-12-11] MEDS: LORAZEPAM INJ 2 MG/1 ML VIAL IV PRN (20:31)
[2019-12-11] MEDS: QUETIAPINE FUMARATE 25 MG TABLET PO SCH (20:33)
[2019-12-11] MEDS: MEMANTINE HCL 10 MG TABLET PO SCH (20:33)
[2019-12-11] MEDS: LEVOTHYROXINE SODIUM 0.088 MG TABLET PO SCH (20:34)
[2019-12-11] MEDS: ATENOLOL 50 MG TABLET PO SCH (20:34)
[2019-12-11] MEDS: CETIRIZINE 10 MG TABLET PO SCH (20:34)
[2019-12-11] MEDS: ATORVASTATIN CALCIUM 20 MG TABLET PO SCH (22:25)
[2019-12-12] MEDS: LORAZEPAM INJ 2 MG/1 ML VIAL IV PRN ×2 (01:45→16:21)
[2019-12-12] MEDS: HYDRALAZINE HCL INJ/PF 20 MG/1 ML SDV IV PRN ×2 (04:19→19:11)
[2019-12-12] MEDS: ATENOLOL 50 MG TABLET PO SCH (12:22)
[2019-12-12] MEDS: MEMANTINE HCL 10 MG TABLET PO SCH ×2 (12:23→19:18)
[2019-12-12] MEDS: CETIRIZINE 10 MG TABLET PO SCH (12:24)
[2019-12-12] MEDS: LEVOTHYROXINE SODIUM 0.088 MG TABLET PO SCH (12:24)
[2019-12-12] MEDS: QUETIAPINE FUMARATE 25 MG TABLET PO SCH ×2 (12:25→19:19)
[2019-12-12] MEDS: CEFPODOXIME 200 MG TABLET PO SCH ×2 (12:34→19:21)
--- NOTE | 2019-12-12 15:52 | ER Document Report ---
Doctor's Note Notes: 12/12/19 15:51 Patient reexamined. Patient is resting comfortably in the bed drinking orange juice. She has no new complaints. She remains confused without any new focal deficits. In reviewing her laboratories she is shown to be growing Pseudomonas from a urine culture. Therefore Vantin has been ordered to cover this. Social work is continue to work on the case and believes that she will be able to be transferred to a facility in [place] possibly on Monday once the results of the PPD have returned.
[2019-12-12] MEDS ORDERED: HALOPERIDOL LACTATE INJ 5 MG/1 ML VIAL IM ONE (17:52)
--- NOTE | 2019-12-12 18:15 | ER Document Report ---
Doctor's Note Notes: 12/12/19 18:14 Patient in signout. Patient is currently awaiting placement. Nursing alerted me that she had some increased agitation and they had to put her in soft restraints. I assessed the patient, she is laying in bed and appears to be singing. She administered 2 mg of Haldol IM to assist with agitation and control. Has Seroquel ordered but unsure if she can follow directions well pills at this time.
[2019-12-12] MEDS: ATORVASTATIN CALCIUM 20 MG TABLET PO SCH (23:13)
[2019-12-13] MEDS: LORAZEPAM INJ 2 MG/1 ML VIAL IV PRN ×3 (00:02→15:41)
[2019-12-13] MEDS: CETIRIZINE 10 MG TABLET PO SCH (09:31)
[2019-12-13] MEDS: QUETIAPINE FUMARATE 25 MG TABLET PO SCH ×2 (09:31→18:19)
[2019-12-13] MEDS: ATENOLOL 50 MG TABLET PO SCH (09:31)
[2019-12-13] MEDS: CEFPODOXIME 200 MG TABLET PO SCH ×2 (09:53→18:19)
[2019-12-13] MEDS: LEVOTHYROXINE SODIUM 0.088 MG TABLET PO SCH (09:53)
[2019-12-13] MEDS: MEMANTINE HCL 10 MG TABLET PO SCH ×2 (09:53→18:19)
[2019-12-13] MEDS: HYDRALAZINE HCL INJ/PF 20 MG/1 ML SDV IV PRN (18:20)
[2019-12-13] MEDS: ATORVASTATIN CALCIUM 20 MG TABLET PO SCH (23:17)
[2019-12-14 09:34] VITALS: BP 166/55
== END 2019-12-14 08:55 | disposition home health service (06) ==
LOC: ER 10:38
DX: F03.91 Unspecified dementia, unspecified severity, with behavioral disturbance (principal); I10 Essential (primary) hypertension; Z75.1 Person awaiting admission to adequate facility elsewhere; Z78.1 Physical restraint status; Z86.73 Personal history of transient ischemic attack (TIA), and cerebral infarction without residual deficits; Z87.891 Personal history of nicotine dependence; Z88.6 Allergy status to analgesic agent; Z88.5 Allergy status to narcotic agent; Z20.828 Contact with and (suspected) exposure to other viral communicable diseases
CPT/HCPCS: 93005; 96376; 99285; 96374; 96375; 36415; 80307 ×2; 83735; 85025; 80053; 81001; 70450; 93010; U0003; A9270 ×13; J1200; J1630; J0360 ×3; J2060 ×3; J3490; C9803; 87635

== ENCOUNTER 2019-12-18 08:51 | Inpatient (IN) | payer MEDICARE, OTHER ==
--- NOTE | 2019-12-15 09:13 | ER Document Report ---
ED Syncope and Near Syncope - General Chief Complaint: Syncope Stated Complaint: POSSIBLE SYNCOPE Time Seen by Provider: 12/15/19 09:02 Primary Care Provider: HENRY BROWNE MD [Primary Care Provider] - Follow up as needed Mode of Arrival: Medic Information source: Emergency Med Personnel Notes: Patient is an 84-year-old female presenting to the emergency department with near syncope. EMS reports that family was moving her from the bedside commode to a chair when her head went down and she was not responding. On EMS arrival patient was awake, alert. She has dementia so she is not oriented at all. She has had recent multiple visits to the emergency department. Upon reviewing the records it appears that this patient actually was recently here in the emergency department as a social hold, she was discharged yesterday to home after failed attempts of finding a fci that was acceptable to the family. TRAVEL OUTSIDE OF THE [place] IN LAST 30 DAYS: No - Related Data Allergies/Adverse Reactions: codeine [Codeine] Allergy (Intermediate, Verified 12/08/19 18:57) HIVES AND RASH Past Medical History - General Information source: [facility] Records - Social History Smoking Status: Never Smoker Frequency of alcohol use: None Drug Abuse: None Family History: None - Past Medical History Cardiac Medical History: Reports: Hx Hypertension - MEDICATION HYPOTENSION Denies: Hx Heart Attack Pulmonary Medical History: Denies: Hx Asthma Neurological Medical History: Reports: Hx Cerebrovascular Accident - oct 2014. Denies: Hx Seizures Endocrine Medical History: Reports: Hx Hyperthyroidism GI Medical History: Denies: Hx Hepatitis, Hx Hiatal Hernia, Hx Ulcer Psychiatric Medical History: Reports: Hx Dementia Infectious Medical History: Denies: Hx Hepatitis Past Surgical History: Reports: Hx Colostomy, Hx Hysterectomy, Hx Kidney (Renal Surgery) - 1 kidney. Denies: Hx Mastectomy, Hx Open Heart Surgery, Hx Pacemaker Review of Systems - Review of Systems -: Yes ROS unobtainable due to patient's medical condition Physical Exam - Vital signs Vitals: Resp BP Pulse Ox 14 167/63 H 97 12/15/19 08:59 12/15/19 08:59 12/15/19 08:59 - Notes Notes: GENERAL: Pleasantly confused, no acute distress. Hard of hearing. HEAD: Atraumatic, normocephalic. EYES: Pupils equal round and reactive to light, extraocular movements intact, conjunctiva are normal. ENT: Nares patent, oropharynx clear without exudates. Moist mucous membranes. NECK: Normal range of motion, supple without lymphadenopathy LUNGS: Breath sounds clear to auscultation bilaterally and equal. No wheezes rales or rhonchi. HEART: Regular rate and rhythm without murmurs ABDOMEN: Soft, nontender, nondistended abdomen. No guarding, no rebound. No masses appreciated. Colostomy present. Female : deferred Musculoskeletal: Normal range of motion, no pitting or edema. No cyanosis. NEUROLOGICAL: Cranial nerves grossly intact. Normal speech. Normal sensory, motor exams PSYCH: Normal mood, normal affect. SKIN: Warm, Dry, normal turgor, no rashes or lesions noted. Course - Re-evaluation Re-evalutation: 12/15/19 11:33 Patient has a mildly worsening creatinine but otherwise unremarkable work-up today. She will be given some IV fluids for this. Her daughter came into the emergency department. 12/15/19 11:[address] Browne. Unfortunately this time the patient does not meet any criteria for inpatient admission. Patient will be held in the emergency d epartment again as a social hold pending placement to a long-term care facility. Dr. Beckford states he will be working with the daughter tomorrow to help facilitate this. We will also get social service liaison and discharge planning involved. Patient is medically cleared at this time and will be moved over to the social hold area. 12/15/19 17:12 Patient was given IV fluids, repeat labs were obtained, creatinine has improved. Patient now medically cleared, she is a social hold and will be seen by social work and discharge planning in the morning. - Vital Signs Vital signs: Temp Pulse Resp BP Pulse Ox 98.8 F 14 167/63 H 97 12/15/19 09:01 12/15/19 08:59 12/15/19 08:59 12/15/19 08:59 - Laboratory Result Diagrams: 12/15/19 09:01 12/15/19 16:29 Laboratory results interpreted by me: 12/15/19 12/15/19 12/15/19 09:01 09:01 09:01 RDW 15.6 H Plt Count 141 L Chloride 110 H BUN 41 H Creatinine 1.65 H Est GFR ( Amer) 36 L Est GFR (MDRD) Non-Af 29 L Creatine Kinase 144 H CK-MB (CK-2) 5.30 H Urine Protein Urine Ketones Urine Urobilinogen Urine Ascorbic Acid 12/15/19 12/15/19 10:05 16:29 RDW Plt Count Chloride 113 H BUN 35 H Creatinine 1.26 H Est GFR ( Amer) 49 L Est GFR (MDRD) Non-Af 40 L Creatine Kinase CK-MB (CK-2) Urine Protein 30 H Urine Ketones TRACE H Urine Urobilinogen 2.0 H Urine Ascorbic Acid 40 H - EKG Interpretation by Me EKG shows normal: Sinus rhythm Rate: Normal When compared to previous EKG there are: No significant change - EKG shows a sinus rhythm, rate of 68, qtc 422, normal axis, normal intervals, no ST segment elevations or depressions to suggest ischemia. No change from previous. Discharge - Discharge Clinical Impression: Dementia Qualifiers: Dementia type: unspecified type Dementia behavioral disturbance: with behavioral disturbance Qualified Code(s): F03.91 - Unspecified dementia with behavioral disturbance Hypertension Qualifiers: Hypertension type: unspecified Qualified Code(s): I10 - Essential (primary) hypertension Condition: Stable Dis[facility] Referrals: HENRY BROWNE MD [Primary Care Provider] - Follow up as needed
[2019-12-15 09:16] LABS: ABSOLUTE EOSINOPHILS # (AUTO) 0.2 10^3/uL (0.0-0.6); ABSOLUTE LYMPHOCYTES (AUTO) 1.1 10^3/uL (0.5-4.7); ABSOLUTE MONOCYTES (AUTO) 0.6 10^3/uL (0.1-1.4); ABSOLUTE NEUT (AUTO) 4.9 10^3/uL (1.7-8.2); BASOPHILS % (AUTO) 0.4 % (0-2); EOSINOPHILS % (AUTO) 2.3 % (0-6); HEMOGLOBIN 13.3 g/dL (12.0-15.5); MEAN CORPUSCULAR HEMOGLOBIN 29.6 pg (27.0-33.4); MEAN CORPUSCULAR HGB CONC 33.2 g/dL (32.0-36.0); MEAN CORPUSCULAR VOLUME 89 fl (80-97); MONOCYTES % (AUTO) 9.5 % (3-13); PLATELET COUNT 141 10^3/uL (150-450); RED BLOOD COUNT 4.49 10^6/uL (3.72-5.28); RED CELL DISTRIBUTION WIDTH 15.6 % (11.5-14.0); SEGMENTED NEUTROPHILS % (AUTO) 71.8 % (42-78); TOTAL CELLS COUNTED % (AUTO) 100 %; WHITE BLOOD COUNT 6.8 10^3/uL (4.0-10.5)
[2019-12-15 09:31] LABS: ALKALINE PHOSPHATASE 58 U/L (38-126); ANION GAP 9 (5-19); ASPARTATE AMINO TRANSFERASE 30 U/L (14-36); BILIRUBIN,TOTAL 0.7 mg/dL (0.2-1.3); BLOOD UREA NITROGEN 41 mg/dL (7-20); CALCIUM 9.7 mg/dL (8.4-10.2); CARBON DIOXIDE 25 mmol/L (22-30); CHLORIDE 110 mmol/L (98-107); CREATINE KINASE 144 U/L (30-135); GLUCOSE 103 mg/dL (75-110); POTASSIUM 4.3 mmol/L (3.6-5.0); TOTAL PROTEIN 6.8 g/dL (6.3-8.2)
[2019-12-15 09:43] LABS: CREATINE KINASE MB 5.3 ng/mL (<4.55); TROPONIN I 0.026 ng/mL
--- NOTE | 2019-12-15 09:45 | RADIOLOGY REPORT (SQ) ---
EXAM DESCRIPTION: CHEST SINGLE VIEW IMAGES COMPLETED DATE/TIME: 12/15/2019 9:24 am REASON FOR STUDY: near syncope COMPARISON: 12/08/2019 and 11/26/2019 EXAM PARAMETERS: NUMBER OF VIEWS: One view. TECHNIQUE: Single frontal radiographic view of the chest acquired. RADIATION DOSE: NA LIMITATIONS: None. FINDINGS: LUNGS AND PLEURA: Small bilateral pleural effusions. A somewhat rounded appearing retroca rdiac opacity may represent focal consolidation versus atelectasis. The lungs are otherwise clear an d evenly aerated. Few scattered calcified granulomas. No pneumothorax. MEDIASTINUM AND HILAR STRUCTURES: No masses. Contour normal. HEART AND VASCULAR STRUCTURES: Heart normal in size. Normal vasculature. BONES: No acute findings. HARDWARE: None in the chest. OTHER: No other significant finding. IMPRESSION: Small bilateral pleural effusions. A retrocardiac opacity suggests left lower lobe cons olidation versus atelectasis. TECHNICAL DOCUMENTATION: JOB ID: [id number] 2010 [employer]- All Rights Reserved Reading location - IP/workstation name: [email or web address]
--- NOTE | 2019-12-15 09:58 | RADIOLOGY REPORT (SQ) ---
EXAM DESCRIPTION: CT HEAD WITHOUT IMAGES COMPLETED DATE/TIME: 12/15/2019 9:38 am REASON FOR STUDY: near syncope COMPARISON: 11/07/2019, 12/08/2019, 12/11/2019 TECHNIQUE: Axial images acquired through the brain without intravenous contrast. Images reviewed wi th bone, brain and subdural windows. Additional sagittal and coronal reconstructions were generated. Images stored on PACS. All CT scanners at this facility use dose modulation, iterative reconstruction, and/or weight based d osing when appropriate to reduce radiation dose to as low as reasonably achievable (ALARA). [facility]: Dose Right [facility]: CareDose [facility]: Dose Right [facility]: Teradose 4D [facility]: [facility] RADIATION DOSE: CT Rad equipment meets quality standard of care and radiation dose reduction techniq ues were employed. CTDIvol: 53.2 mGy. DLP: 964 mGy-cm. mGy. LIMITATIONS: None. FINDINGS: VENTRICLES: Prominent. CEREBRUM: No masses. No hemorrhage. No midline shift. Areas of low density in the white matter mos t likely due to chronic micro-vascular ischemic change. No evidence for acute infarction. CEREBELLUM: No masses. No hemorrhage. No alteration of density. No evidence for acute infarction. EXTRAAXIAL SPACES: Mild age-related involutional change. No fluid collections. No masses. ORBITS AND GLOBE: No intra- or extraconal masses. Normal contour of globe without masses. CALVARIUM: No fracture. PARANASAL SINUSES: No fluid or mucosal thickening. SOFT TISSUES: No mass or hematoma. OTHER: No other significant finding. IMPRESSION: MILD CHRONIC CHANGES OF ATROPHY AND MICROVASCULAR ISCHEMIA. NO ACUTE PROCESS. EVIDENCE OF ACUTE STROKE: NO. TECHNICAL DOCUMENTATION: JOB ID: [id number] Quality ID # [id number]: Final reports with documentation of one or more dose reduction techniques (e.g., Au tomated exposure control, adjustment of the mA and/or kV according to patient size, use of iterative reconstruction technique) 2010 [employer]- All Rights Reserved Reading location - IP/workstation name: [email or web address]
[2019-12-15 10:35] LABS: APPEARANCE,URINE SLIGHTLY-CLOUDY; BILIRUBIN,URINE NEGATIVE (NEGATIVE); COLOR,URINE YELLOW; GLUCOSE, URINE NEGATIVE (NEGATIVE); KETONES,URINE TRACE mg/dL (NEGATIVE); LEUKOCYTE ESTERASE,URINE NEGATIVE (NEGATIVE); NITRITE,URINE NEGATIVE (NEGATIVE); PROTEIN,URINE 30 mg/dL (NEGATIVE); URINE SPECIFIC GRAVITY 1.023
[2019-12-15] MEDS: LORAZEPAM INJ 2 MG/1 ML VIAL IV PRN (14:15)
[2019-12-15 17:03] LABS: ANION GAP 10 (5-19); BLOOD UREA NITROGEN 35 mg/dL (7-20); CALCIUM 9.1 mg/dL (8.4-10.2); CARBON DIOXIDE 22 mmol/L (22-30); CHLORIDE 113 mmol/L (98-107); GLUCOSE 92 mg/dL (75-110); POTASSIUM 4.3 mmol/L (3.6-5.0)
[2019-12-15] MEDS: QUETIAPINE FUMARATE 25 MG TABLET PO SCH (18:15)
[2019-12-15] MEDS: CEPHALEXIN 500 MG CAPSULE PO SCH (18:15)
[2019-12-15] MEDS: MEMANTINE HCL 10 MG TABLET PO SCH (19:46)
--- NOTE | 2019-12-15 20:12 | EKG REPORT ---
SEVERITY:- ABNORMAL ECG - SINUS RHYTHM BORDERLINE RIGHT AXIS DEVIATION ABNORMAL T, CONSIDER ISCHEMIA, LATERAL LEADS : Confirmed by: Nick Bustamante MD 15-Dec-2019 20:11:58
[2019-12-16] MEDS: LEVOTHYROXINE SODIUM 0.088 MG TABLET PO SCH ×2 (09:37→09:52)
[2019-12-16] MEDS: QUETIAPINE FUMARATE 25 MG TABLET PO SCH ×3 (09:38→18:49)
[2019-12-16] MEDS: MEMANTINE HCL 10 MG TABLET PO SCH ×3 (09:38→18:48)
[2019-12-16] MEDS: ATORVASTATIN CALCIUM 20 MG TABLET PO SCH ×2 (09:38→09:53)
[2019-12-16] MEDS: CEPHALEXIN 500 MG CAPSULE PO SCH ×3 (09:38→18:48)
[2019-12-16] MEDS: ATENOLOL 50 MG TABLET PO SCH ×2 (09:38→09:53)
--- NOTE | 2019-12-16 19:35 | PSYCHOLOGICAL NOTE ---
Psych Note - Psych Note Date seen by psych provider: 12/16/19 Time seen by psych provider: 12:50 Psych Note: Reason for Consult: Verbal request for medication recommendations to address behaviours Medication recommendations per [facility]'s contract psychiatrist Dr Som MCKEON are as follows: Please discontinue Ativan, Namenda, and Seroquel Please add Depakote Sprinkles 250mg twice daily Rispirdone 0.25mg twice daily as needed Clonidine transdermal patch 0.1mg -please ensure blood pressure monitoring every 6 hours
--- NOTE | 2019-12-16 19:44 | ER Document Report ---
Doctor's Note Notes: 12/16/19 19:44 Patient has had an uneventful day. The soft restraints had to be reinitiated due to the patient pulling at her colostomy bag. The supportive employment case manager has put out request to multiple institutions to find an appropriate place for the patient to reside.
[2019-12-17] MEDS: ATORVASTATIN CALCIUM 20 MG TABLET PO SCH (12:07)
[2019-12-17] MEDS: LEVOTHYROXINE SODIUM 0.088 MG TABLET PO SCH (12:07)
[2019-12-17] MEDS: CEPHALEXIN 500 MG CAPSULE PO SCH ×2 (12:07→17:04)
[2019-12-17] MEDS: QUETIAPINE FUMARATE 25 MG TABLET PO SCH ×2 (12:08→17:05)
[2019-12-17] MEDS: ATENOLOL 50 MG TABLET PO SCH (12:08)
[2019-12-17] MEDS: MEMANTINE HCL 10 MG TABLET PO SCH ×2 (12:08→17:04)
--- NOTE | 2019-12-17 18:38 | ER Document Report ---
Doctor's Note Notes: 12/17/19 18:38 Again, the patient has had an uneventful day, and the leather case finisher is attempting to find placement for the patient.
[2019-12-18] MEDS: LORAZEPAM INJ 2 MG/1 ML VIAL IV PRN (02:27)
[~2019-12-18 08:51] MED LIST changes: -BUPIVACAINE HCL 0.75% INJ/PF (7.5 MG/1 ML) 10 ML SDV OD PRN; +CLONIDINE HCL 0.1 MG TABLET PO ONE; -KETOROLAC TROMETHAMINE 0.45% 4 DROP/0.4 ML DROPERETTE OD PRN; -LIDOCAINE 4% INJ/PF (40 MG/ML) 5 ML AMPUL OD PRN; +MEMANTINE HCL 10 MG TABLET ONE; +NORMAL SALINE 1000 ML 1,000 ML IV ONE; +NORMAL SALINE 500 ML IV ONE
--- NOTE | 2019-12-18 09:53 | ER Document Report ---
Doctor's Note Notes: 12/18/19 09:51 Patient examined is now. Patient was sleeping comfortably in the room. She has eaten breakfast already without problem. Patient has no recent complaints or concerns per nursing staff. Nursing states that she had an uneventful evening and morning so far. Patient lungs are clear to auscultation. Heart is regular rate and rhythm. Abdomen is soft nontender nondistended. Skin is warm and dry. Patient is still awaiting placement.
[2019-12-18] MEDS: MEMANTINE HCL 10 MG TABLET PO SCH (12:03)
[2019-12-18] MEDS: LEVOTHYROXINE SODIUM 0.088 MG TABLET PO SCH ×2 (12:03→12:05)
[2019-12-18] MEDS: ATENOLOL 50 MG TABLET PO SCH (12:03)
[2019-12-18] MEDS: QUETIAPINE FUMARATE 25 MG TABLET PO SCH (12:04)
[2019-12-18] MEDS: ATORVASTATIN CALCIUM 20 MG TABLET PO SCH (12:04)
[2019-12-18] MEDS: CEPHALEXIN 500 MG CAPSULE PO SCH (12:04)
[2019-12-18] MEDS: DIVALPROEX SODIUM 125 MG CAP.SPRINK PO SCH ×2 (13:58→18:24)
[2019-12-18] MEDS: RISPERIDONE 0.25 MG TABLET PO SCH ×2 (13:59→18:25)
[2019-12-19] MEDS ORDERED: LORAZEPAM 0.5 MG TABLET PO ONE (00:22)
[2019-12-19] MEDS ORDERED: LORAZEPAM INJ 2 MG/1 ML VIAL IM ONE (00:45)
[2019-12-19] MEDS: LEVOTHYROXINE SODIUM 0.088 MG TABLET PO SCH (06:02)
[2019-12-19] MEDS: ATORVASTATIN CALCIUM 20 MG TABLET PO SCH (10:26)
[2019-12-19] MEDS: RISPERIDONE 0.25 MG TABLET PO SCH ×2 (10:26→18:07)
[2019-12-19] MEDS: ATENOLOL 50 MG TABLET PO SCH (10:26)
[2019-12-19] MEDS: DIVALPROEX SODIUM 125 MG CAP.SPRINK PO SCH ×2 (10:26→18:07)
--- NOTE | 2019-12-19 15:31 | ER Document Report ---
Doctor's Note Notes: 12/19/19 15:31 Patient reexamined just now. Patient is no distress. She is listening to music. She has been eating some applesauce and drinking lots of water per nursing. Patient has not had any laboratories in 4 days we will recheck laboratories. Heart is regular rate and rhythm. Skin is warm and dry. Abdomen is soft nontender nondistended. Lungs are clear to auscultation bilaterally. Patient remains confused secondary to her dementia.
[2019-12-19 17:06] LABS: ABSOLUTE EOSINOPHILS # (AUTO) 0.1 10^3/uL (0.0-0.6); ABSOLUTE MONOCYTES (AUTO) 0.6 10^3/uL (0.1-1.4); ABSOLUTE NEUT (AUTO) 4.9 10^3/uL (1.7-8.2); BASOPHILS % (AUTO) 0.6 % (0-2); EOSINOPHILS % (AUTO) 1.9 % (0-6); HEMOGLOBIN 14.3 g/dL (12.0-15.5); LYMPHOCYTES % (AUTO) 14.6 % (13-45); MEAN CORPUSCULAR HEMOGLOBIN 29.6 pg (27.0-33.4); MEAN CORPUSCULAR HGB CONC 33.3 g/dL (32.0-36.0); MEAN CORPUSCULAR VOLUME 89 fl (80-97); MONOCYTES % (AUTO) 9.1 % (3-13); PLATELET COUNT 142 10^3/uL (150-450); RED BLOOD COUNT 4.84 10^6/uL (3.72-5.28); RED CELL DISTRIBUTION WIDTH 15.2 % (11.5-14.0); SEGMENTED NEUTROPHILS % (AUTO) 73.8 % (42-78); TOTAL CELLS COUNTED % (AUTO) 100 %; WHITE BLOOD COUNT 6.7 10^3/uL (4.0-10.5)
[2019-12-19 17:27] LABS: ANION GAP 10 (5-19); BLOOD UREA NITROGEN 24 mg/dL (7-20); CALCIUM 9.5 mg/dL (8.4-10.2); CARBON DIOXIDE 27 mmol/L (22-30); CHLORIDE 109 mmol/L (98-107); GLUCOSE 129 mg/dL (75-110); POTASSIUM 4.3 mmol/L (3.6-5.0)
[2019-12-19] MEDS ORDERED: LEVOTHYROXINE SODIUM 0.088 MG TABLET PO ONE (18:27)
[2019-12-20] MEDS ORDERED: LORAZEPAM INJ 2 MG/1 ML VIAL IV ONE ×2 (00:06→22:44)
[2019-12-20] MEDS: LEVOTHYROXINE SODIUM 0.088 MG TABLET PO SCH (06:57)
[2019-12-20] MEDS: DIVALPROEX SODIUM 125 MG CAP.SPRINK PO SCH ×2 (10:44→20:14)
[2019-12-20] MEDS: RISPERIDONE 0.25 MG TABLET PO SCH ×2 (10:44→20:14)
[2019-12-20] MEDS: ATENOLOL 50 MG TABLET PO SCH (10:45)
[2019-12-20] MEDS: ATORVASTATIN CALCIUM 20 MG TABLET PO SCH (10:45)
[2019-12-21] MEDS: RISPERIDONE 0.25 MG TABLET PO SCH ×2 (10:00→20:58)
[2019-12-21] MEDS: ATENOLOL 50 MG TABLET PO SCH (10:00)
[2019-12-21] MEDS: ATORVASTATIN CALCIUM 20 MG TABLET PO SCH (10:00)
[2019-12-21] MEDS: DIVALPROEX SODIUM 125 MG CAP.SPRINK PO SCH ×2 (10:00→20:58)
[2019-12-21 12:50] LABS: ANION GAP 12 (5-19); BLOOD UREA NITROGEN 25 mg/dL (7-20); CALCIUM 9.4 mg/dL (8.4-10.2); CARBON DIOXIDE 22 mmol/L (22-30); CHLORIDE 111 mmol/L (98-107); GLUCOSE 77 mg/dL (75-110); POTASSIUM 4.8 mmol/L (3.6-5.0)
[2019-12-21] MEDS: LEVOTHYROXINE SODIUM 0.088 MG TABLET PO SCH (12:56)
[2019-12-21] MEDS ORDERED: DEXTROSE 5%-1/2 NORMAL SALINE 500 ML IV ONE (13:15)
--- NOTE | 2019-12-21 13:18 | ER Document Report ---
Doctor's Note Notes: 12/21/19 13:17 Patient seen and examined. In short this is an 84-year-old female with advanced dementia, brought to the ED for possible placement. The patient is sleeping in bed. According to nursing, she woke up, had a small amount of applesauce, went back to sleep. She has had diminished oral intake today. I am also notified that patient's daughter was here, upset that the patient had not been admitted to the hospital. The patient awoke for me for a few seconds, but then went back to sleep. Vitals were reviewed. Heart is regular rate and rhythm, lungs are clear to auscultation bilaterally. Abdomen is soft and nontender. Left ostomy in place with pink stoma. I reviewed this patient's labs. She had borderline hypernatremia recently. Labs repeated and her sodium has come down. Her glucose is only in the 70s, and she is not arousing easily. Decision was made to administer D5 half-normal saline bolus. She has not required any sort of restraints. We will continue to monitor. 12/21/19 18:57 I went back and reexamined the patient multiple times today. She is completely nonverbal. She is not moving. She keeps going back to sleep. I reviewed notes from prior evaluation earlier this week, from her last visit. This is an acute change in her status. She had her medications changed a few days ago, I am unsure as to whether or not this is secondary to this, or something more acute. I have reordered labs, will order chest x-ray. I have discussed this case with Dr. Samson, who agrees that if this is an acute change, and patient evaluation is warranted.
--- NOTE | 2019-12-21 19:42 | RADIOLOGY REPORT (SQ) ---
EXAM DESCRIPTION: CHEST SINGLE VIEW IMAGES COMPLETED DATE/TIME: 12/21/2019 6:58 pm REASON FOR STUDY: altered mental status COMPARISON: 12/15/2019 TECHNIQUE: Single frontal radiographic view of the chest acquired. NUMBER OF VIEWS: One view. LIMITATIONS: None. FINDINGS: LUNGS AND PLEURA: No pneumothorax. Persistent left basilar airspace disease -confluent op acity. No significant pleural effusion. MEDIASTINUM AND HILAR STRUCTURES: Stable. HEART AND VASCULAR STRUCTURES: Stable. BONES: No acute findings. HARDWARE: None in the chest. OTHER: No other significant finding. IMPRESSION: Persistent left basilar airspace disease -confluent opacity. No significant pleural ef fusion. TECHNICAL DOCUMENTATION: JOB ID: [id number] [place]-72 2010 [employer]- All Rights Reserved Reading location - IP/workstation name: [email or web address]
[2019-12-21 19:47] LABS: ABSOLUTE BASOPHILS # (AUTO) 0.1 10^3/uL (0.0-0.2); ABSOLUTE EOSINOPHILS # (AUTO) 0.2 10^3/uL (0.0-0.6); ABSOLUTE MONOCYTES (AUTO) 0.5 10^3/uL (0.1-1.4); ABSOLUTE NEUT (AUTO) 4.7 10^3/uL (1.7-8.2); BASOPHILS % (AUTO) 0.9 % (0-2); EOSINOPHILS % (AUTO) 3.7 % (0-6); HEMATOCRIT 43.6 % (36.0-47.0); HEMOGLOBIN 14.3 g/dL (12.0-15.5); LYMPHOCYTES % (AUTO) 15.8 % (13-45); MEAN CORPUSCULAR HEMOGLOBIN 29.5 pg (27.0-33.4); MEAN CORPUSCULAR HGB CONC 32.7 g/dL (32.0-36.0); MEAN CORPUSCULAR VOLUME 90 fl (80-97); MONOCYTES % (AUTO) 8.3 % (3-13); PLATELET COUNT 136 10^3/uL (150-450); RED BLOOD COUNT 4.83 10^6/uL (3.72-5.28); RED CELL DISTRIBUTION WIDTH 15.6 % (11.5-14.0); SEGMENTED NEUTROPHILS % (AUTO) 71.3 % (42-78); TOTAL CELLS COUNTED % (AUTO) 100 %; WHITE BLOOD COUNT 6.5 10^3/uL (4.0-10.5)
[2019-12-21 20:24] LABS: ALBUMIN 3.7 g/dL (3.5-5.0); ALKALINE PHOSPHATASE 65 U/L (38-126); ASPARTATE AMINO TRANSFERASE 30 U/L (14-36); BILIRUBIN,TOTAL 0.6 mg/dL (0.2-1.3); TOTAL PROTEIN 6.4 g/dL (6.3-8.2)
[2019-12-21] MEDS ORDERED: LORAZEPAM INJ 2 MG/1 ML VIAL IV PRN (21:01)
[2019-12-21] MEDS ORDERED: METOPROLOL TARTRATE PF/INJ 5 MG/5 ML SDV IV PRN (21:01)
[2019-12-21] MEDS ORDERED: ACETAMINOPHEN 650 MG SUPP.RECT PR PRN (21:01)
[2019-12-21] MEDS ORDERED: HALOPERIDOL LACTATE INJ 5 MG/1 ML VIAL IV PRN (21:04)
[2019-12-21] MEDS ORDERED: PROMETHAZINE HCL INJ 25 MG/1 ML VIAL IV PRN (21:06)
[2019-12-21] MEDS: FAMOTIDINE INJ/PF 20 MG/2 ML SDV IV SCH (23:17)
[2019-12-21] MEDS: HEPARIN SOD (PORCINE) 5,000 UNIT/ML 1 ML VIAL SUBCUT SCH (23:21)
[2019-12-22] MEDS: DEXTROSE 5%-LACTATED RINGERS 1,000 ML IV PRN ×4 (01:03→23:46)
[2019-12-22] MEDS: HYDRALAZINE HCL INJ/PF 20 MG/1 ML SDV IV PRN (01:03)
[2019-12-22 01:27] LABS: APPEARANCE,URINE SLIGHTLY-CLOUDY; BILIRUBIN,URINE NEGATIVE (NEGATIVE); COLOR,URINE YELLOW; GLUCOSE, URINE NEGATIVE (NEGATIVE); KETONES,URINE TRACE mg/dL (NEGATIVE); LEUKOCYTE ESTERASE,URINE TRACE (NEGATIVE); NITRITE,URINE NEGATIVE (NEGATIVE); PROTEIN,URINE 30 mg/dL (NEGATIVE); URINE SPECIFIC GRAVITY 1.023; UROBILINOGEN,URINE NEGATIVE mg/dL (<2.0)
--- NOTE | 2019-12-22 02:33 | PDOC H&P ---
History of Present Illness Admission Date/PCP: 12/21/2019 20:30 HENRY BROWNE MD Patient complains of: Acute encephalopathy History of Present Illness: SHADE QUICK is a 84 year old female who initially presented to the emergency room on 12/15/2019 with a near syncopal episode. Patient has severe dementia and is unable to contribute to her medical history. In the emergency room she was evaluated and attempts at arranging placement and a senior care were undertaken. Over the course of time in the emergency room her psychiatric medications were changed at the direction of the psychiatrist who was consulted by ER physician. Since her medication change ER staff is noted a change in her mental status as she has become much more somnolent and less responsive to stimuli. When she is aroused she remains combative. Her oral intake has been drastically decreased and this is of concern to the ER provider staff such that they have requested that she be admitted to the hospital for additional treatment prior to placement in a nursing care facility. The patient was accepted to the hospitalist service by the gas and oil servicer Dr. Brandon Samson. Past Medical History Past Medical History: Due to the patient's severe dementia, past medical history, surgical history, social and family history are obtained from the best available reliable source. Cardiac Medical History: Reports: Hyperlipidema, Hypertension - MEDICATION HYPOTENSION Denies: Atrial Fibrillation, Congestive Heart Failure, Coronary Artery Disease, DVT, Myocardial Infarction, Pulmonary Embolism Pulmonary Medical History: Denies: Asthma, Chronic Obstructive Pulmonary Disease (COPD) EENT Medical History: Reports: Cataracts Denies: Ears - Hearing aids Neurological Medical History: Reports: Ischemic CVA Denies: Hemorrhagic CVA, Seizures Endocrine Medical History: Reports: Hypothyroidism Denies: Diabetes Mellitus Type 1, Diabetes Mellitus Type 2, Hyperthyroidism Renal/ Medical History: Reports: Chronic Kidney Disease, Other - Status post left nephrectomy Denies: Nephrolithiasis Malignancy Medical History: Reports: Colorectal Cancer GI Medical History: Reports: Other - Colon polyps, status post colectomy with colostomy Denies: Cirrhosis, Crohn's Disease, Gastroesophageal Reflux Disease, Hepatitis, Hiatal Hernia, Peptic Ulcer Disease, Ulcerative Colitis Musculoskeltal Medical History: Denies: Arthritis, Gout Skin Medical History: Denies: Eczema, Psoriasis Psychiatric Medical History: Reports: Dementia Denies: Alcohol Dependency, Substance Abuse, Tobacco Dependency Traumatic Medical History: Reports: None Hematology: Denies: Anemia, Bleeding Tendencies Infectious Medical History: Reports: None Past Surgical History Past Surgical History: Due to the patient's severe dementia, past medical history, surgical history, social and family history are obtained from the best available reliable source. Past Surgical History: Reports: Colostomy, Hysterectomy, Other - Colectomy, cataract surgery OU, left nephrectomy, colonoscopy w biopsy Social History Information Source: [facility] Records Lives with: Family Smoking Status: Former Smoker Electronic Cigarette use?: No Frequency of Alcohol Use: None Hx Recreational Drug Use: No Drugs: None Hx Prescription Drug Abuse: No Past Social History Note: Due to the patient's severe dementia, past medical history, surgical history, social and family history are obtained from the best available reliable source. - Advance Directive Resuscitation Status: Full Code Surrogate healthcare decision maker:: Carolina Vidal Family History Family History: CAD - Mother, Other Family History: Due to the patient's severe dementia, past medical history, surgical history, social and family history are obtained from the best available reliable source. Parental Family History Reviewed: Yes - Father of black lung disease Children Family History Reviewed: No Sibling(s) Family History Reviewed.: No Medication/Allergy Home Medications: Atenolol [Tenormin 50 mg Tablet] 50 mg PO DAILY 12/11/19 Atorvastatin Calcium [Lipitor 20 mg Tablet] 20 mg PO QHS 12/11/19 Cephalexin [Cephalexin 500 MG Tablet] 500 mg PO BID 12/11/19 Cetirizine HCl [Zyrtec 10 mg Tablet] 10 mg PO DAILY 12/11/19 Diclofenac Sodium 1 gm TOP BIDP PRN 12/11/19 Levothyroxine Sodium [Synthroid 0.088 mg Tablet] 0.088 mg PO Q6AM 12/11/19 Memantine HCl [Namenda] 5 mg PO Q12 12/11/19 Quetiapine Fumarate [Seroquel] 25 mg PO Q12 12/11/19 Allergies/Adverse Reactions: codeine [Codeine] Allergy (Intermediate, Verified 12/08/19 18:57) HIVES AND RASH Review of Systems ROS unobtainable: Due to mental status - Severe dementia Physical Exam Vital Signs: Temp Pulse Resp BP Pulse Ox 98.3 F 73 20 141/60 H 97 12/21/19 06:32 12/21/19 06:32 12/21/19 06:32 12/21/19 06:32 12/21/19 06:32 Intake & Output 12/19/19 12/20/19 12/21/19 23:59 23:59 23:59 Intake Total 240 500 Balance 240 500 Weight 50.7 kg General appearance: PRESENT: no acute distress, other - Somnolent, combative when aroused Head exam: PRESENT: atraumatic, normocephalic Eye exam: PRESENT: other - Eyelids and lashes normal in appearance. ABSENT: periorbital swelling Ear exam: PRESENT: normal external ear exam. ABSENT: bleeding, drainage Mouth exam: PRESENT: dry mucosa, neck supple Neck exam: ABSENT: thyromegaly, tracheal deviation Respiratory exam: PRESENT: clear to auscultation sulema, symmetrical, unlabored Cardiovascular exam: PRESENT: RRR. ABSENT: clicks, gallop, rubs Pulses: PRESENT: normal radial pulses, normal dorsalis pedis pul Vascular exam: PRESENT: normal capillary refill. ABSENT: pallor GI/Abdominal exam: PRESENT: normal bowel sounds, soft Rectal exam: PRESENT: deferred Extremities exam: ABSENT: joint swelling, pedal edema Musculoskeletal exam: ABSENT: deformity, dislocation Neurological exam: PRESENT: altered - Somnolent, CN II-XII grossly intact Psychiatric exam: PRESENT: other - Somnolent, confused and combative when aroused Skin exam: PRESENT: dry, intact, warm. ABSENT: jaundice, rash Results Laboratory Results: 12/21/19 12:10 12/21/19 12:10 12/21/19 12/21/19 12:10 12:10 WBC 6.5 RBC 4.83 Hgb 14.3 Hct 43.6 MCV 90 MCH 29.5 MCHC 32.7 RDW 15.6 H Plt Count 136 L Seg Neutrophils % 71.3 Sodium 144.5 Potassium 4.8 Chloride 111 H Carbon Dioxide 22 Anion Gap 12 BUN 25 H Creatinine 1.06 Est GFR ( Amer) 59 L Glucose 77 Calcium 9.4 Total Bilirubin 0.6 AST 30 Alkaline Phosphatase 65 Total Protein 6.4 Albumin 3.7 12/15/19 12/15/19 09:01 09:01 Creatine Kinase 144 H CK-MB (CK-2) 5.30 H Troponin I 0.026 Impressions: Head CT 12/15/19 09:09 IMPRESSION: MILD CHRONIC CHANGES OF ATROPHY AND MICROVASCULAR ISCHEMIA. NO ACUTE PROCESS. EVIDENCE OF ACUTE STROKE: NO. Chest X-Ray 12/21/19 18:58 IMPRESSION: Persistent left basilar airspace disease -confluent opacity. No significant pleural effusion. Assessment and Plan - Diagnosis (1) Acute encephalopathy Is this a current diagnosis for this admission?: Yes (2) Hypertension Qualifiers: Hypertension type: essential hypertension Qualified Code(s): I10 - Essential (primary) hypertension Is this a current diagnosis for this admission?: Yes (3) Hyperlipidemia Qualifiers: Hyperlipidemia type: unspecified Qualified Code(s): E78.5 - Hyperlipidemia, unspecified Is this a current diagnosis for this admission?: Yes (4) Chronic kidney disease Qualifiers: Chronic kidney disease stage: stage 3 (moderate) Qualified Code(s): N18.3 - Chronic kidney disease, stage 3 (moderate) Is this a current diagnosis for this admission?: Yes (5) Dementia with behavioral disturbance Qualifiers: Dementia type: unspecified type Qualified Code(s): F03.91 - Unspecified dementia with behavioral disturbance Is this a current diagnosis for this admission?: Yes - Plan Summary Summary: Patient will be admitted to the medical floor where she will receive routine supportive and symptomatic cares. Current medications will be discontinued. Patient will receive Ativan 1 mg IV every 4 hours as needed for anxiety or restlessness. She will receive Haldol 5 mg IV every 4 hours as needed for agitation. She will receive intravenous hydralazine and/or metoprolol as needed for hypertension. She will receive a cardiac diet. A lipid profile and thyroid profile will be obtained. CBCs, metabolic profiles, magnesium levels and additional radiographic and/or laboratory evaluations will be obtained as appropriate. Case management will continue to work towards finding an acceptable senior care placement for this patient. A speech therapy consultation for evaluation of the patient's swallow will be obtained. PT and OT consultations will also be obtained. - Time Time Spent with patient: Less than 15 minutes Medications reviewed and adjusted accordingly: Yes Anticipated Discharge Disposition: [facility] Anticipated Discharge Timeframe: when bed available - Inpatient Certification Based on my medical assessment, after consideration of the patient's comorbidities, presenting symptoms, or acuity I expect that the services needed warrant INPATIENT care.: Yes I certify that my determination is in accordance with my understanding of Medicare's requirements for reasonable and necessary INPATIENT services [42 CFR 412.3e].: Yes Medical Necessity: Failure to Improve With Outpatient Therapy, Need Close Monit oring Due to Risk of Patient Decompensation, Need For IV Fluids
[2019-12-22] MEDS: HEPARIN SOD (PORCINE) 5,000 UNIT/ML 1 ML VIAL SUBCUT SCH ×3 (05:46→22:30)
[2019-12-22 06:03] LABS: HEMATOCRIT 38.1 % (36.0-47.0); MEAN CORPUSCULAR HEMOGLOBIN 29.7 pg (27.0-33.4); MEAN CORPUSCULAR HGB CONC 34.1 g/dL (32.0-36.0); MEAN CORPUSCULAR VOLUME 87 fl (80-97); PLATELET COUNT 131 10^3/uL (150-450); RED BLOOD COUNT 4.37 10^6/uL (3.72-5.28); RED CELL DISTRIBUTION WIDTH 15.3 % (11.5-14.0); WHITE BLOOD COUNT 6.3 10^3/uL (4.0-10.5)
[2019-12-22 06:16] LABS: ALBUMIN 3.2 g/dL (3.5-5.0); ALKALINE PHOSPHATASE 53 U/L (38-126); ANION GAP 7 (5-19); ASPARTATE AMINO TRANSFERASE 29 U/L (14-36); BILIRUBIN,TOTAL 0.6 mg/dL (0.2-1.3); BLOOD UREA NITROGEN 23 mg/dL (7-20); CALCIUM 8.8 mg/dL (8.4-10.2); CARBON DIOXIDE 22 mmol/L (22-30); CHLORIDE 113 mmol/L (98-107); CHOLESTEROL 121.58 mg/dL (0-200); GLUCOSE 144 mg/dL (75-110); TOTAL PROTEIN 5.8 g/dL (6.3-8.2); TRIGLYCERIDES 91 mg/dL (<150)
[2019-12-22 06:27] LABS: DIRECT LDL 76 mg/dL (<100)
[2019-12-22 06:31] LABS: FREE T3 2.48 pg/mL (2.77-5.27)
[2019-12-22 06:45] LABS: THYROID STIMULATING HORMONE 1.4 uIU/mL (0.47-4.68)
[2019-12-22 06:49] LABS: POTASSIUM 3.8 mmol/L (3.6-5.0)
[2019-12-22] MEDS ORDERED: LEVOTHYROXINE SODIUM INJ/PF 0.1 MG SDV IV SCH (10:00)
[2019-12-22] MEDS ORDERED: LEVOTHYROXINE SODIUM INJ/PF 0.1 MG SDV IV ONE (10:00)
[2019-12-22] MEDS: FAMOTIDINE INJ/PF 20 MG/2 ML SDV IV SCH ×2 (10:01→22:29)
--- NOTE | 2019-12-22 16:03 | PDOC PROGRESS REPORT ---
Subjective Progress Note for:: 12/22/19 Subjective:: The patient is moaning but is nonverbal. She does not open her eyes with verbal stimulation. Reason For Visit: ACUTE ENCEPHALOPATHY Physical Exam Vital Signs: Temp Pulse Resp BP Pulse Ox 98.0 F 77 16 145/82 H 97 12/22/19 10:33 12/22/19 10:33 12/22/19 10:33 12/22/19 10:33 12/22/19 10:33 Intake & Output 12/21/19 12/22/19 12/23/19 06:59 06:59 06:59 Intake Total 450 966 0249 Output Total 0 0 Balance 134 799 2021 Weight 49.1 kg General appearance: PRESENT: well-developed, other - Moderate distress. ABSENT: cooperative - Due to mental status Head exam: PRESENT: atraumatic, normocephalic Eye exam: PRESENT: other - Unable to assess Ear exam: PRESENT: normal external ear exam. ABSENT: bleeding, drainage Mouth exam: PRESENT: other - Unable to assess Teeth exam: PRESENT: other - Unable to assess Throat exam: PRESENT: other - Unable to assess Neck exam: PRESENT: other - Unable to assess Respiratory exam: PRESENT: clear to auscultation sulema, symmetrical, unlabored. ABSENT: rales, rhonchi, tachypnea, wheezes Cardiovascular exam: PRESENT: RRR, +S1, +S2. ABSENT: bradycardia, diastolic murmur, irregular rhythm, systolic murmur, tachycardia GI/Abdominal exam: PRESENT: normal bowel sounds, soft. ABSENT: distended, guarding, tenderness - No wincing with palpation Rectal exam: PRESENT: deferred Gentrourinary exam: ABSENT: indwelling catheter Musculoskeletal exam: ABSENT: ambulatory Neurological exam: PRESENT: altered - Nonverbal, moaning and not interactive Focused psych exam: PRESENT: restlessness Results Laboratory Results: 12/22/19 04:11 12/22/19 04:11 12/21/19 12/21/19 12/22/19 12:10 12:10 00:54 WBC 6.5 RBC 4.83 Hgb 14.3 Hct 43.6 MCV 90 MCH 29.5 MCHC 32.7 RDW 15.6 H Plt Count 136 L Seg Neutrophils % 71.3 Sodium 144.5 Potassium 4.8 Chloride 111 H Carbon Dioxide 22 Anion Gap 12 BUN 25 H Creatinine 1.06 Est GFR ( Amer) 59 L Glucose 77 Calcium 9.4 Magnesium Total Bilirubin 0.6 AST 30 Alkaline Phosphatase 65 Total Protein 6.4 Albumin 3.7 Triglycerides Cholesterol LDL Cholesterol Direct VLDL Cholesterol HDL Cholesterol TSH Free T3 pg/mL Urine Color YELLOW Urine Appearance SLIGHTLY-CLOUDY Urine pH 5.0 Ur Specific [place] 1.023 Urine Protein 30 H Urine Glucose (UA) NEGATIVE Urine Ketones TRACE H Urine Blood MODERATE H Urine Nitrite NEGATIVE Ur Leukocyte Esterase TRACE H Urine WBC (Auto) 13 Urine RBC (Auto) 13 12/22/19 12/22/19 12/22/19 04:11 04:11 04:11 WBC 6.3 RBC 4.37 Hgb 13.0 Hct 38.1 MCV 87 MCH 29.7 MCHC 34.1 RDW 15.3 H Plt Count 131 L Seg Neutrophils % Sodium 142.3 Potassium 3.8 D Chloride 113 H Carbon Dioxide 22 Anion Gap 7 BUN 23 H Creatinine 0.95 Est GFR ( Amer) > 60 Glucose 144 H Calcium 8.8 Magnesium 1.8 Total Bilirubin 0.6 AST 29 Alkaline Phosphatase 53 Total Protein 5.8 L Albumin 3.2 L Triglycerides 91 Cholesterol 121.58 LDL Cholesterol Direct 76 VLDL Cholesterol 18.0 HDL Cholesterol 36 L TSH 1.40 Free T3 pg/mL 2.48 L Urine Color Urine Appearance Urine pH Ur Specific [place] Urine Protein Urine Glucose (UA) Urine Ketones Urine Blood Urine Nitrite Ur Leukocyte Esterase Urine WBC (Auto) Urine RBC (Auto) 12/15/19 12/15/19 09:01 09:01 Creatine Kinase 144 H CK-MB (CK-2) 5.30 H Troponin I 0.026 Impressions: Head CT 12/15/19 09:09 IMPRESSION: MILD CHRONIC CHANGES OF ATROPHY AND MICROVASCULAR ISCHEMIA. NO ACUTE PROCESS. EVIDENCE OF ACUTE STROKE: NO. Chest X-Ray 12/21/19 18:58 IMPRESSION: Persistent left basilar airspace disease -confluent opacity. No significant pleural effusion. Assessment and Plan - Diagnosis (1) Dementia with behavioral disturbance Qualifiers: Dementia type: unspecified type Qualified Code(s): F03.91 - Unspecified dementia with behavioral disturbance Is this a current diagnosis for this admission?: Yes Plan: Psychiatry made some changes in her regimen. She was previously on Seroquel and Risperdal. She remains on Risperdal and a trial of Depakote was instituted. She is now moaning but not participating in any verbal interaction. She keeps her eyes closed. She is restless. (2) Acute metabolic encephalopathy Is this a current diagnosis for this admission?: Yes Plan: Possibly from medications. We will check a Depakote level. (3) Chronic kidney disease Qualifiers: Chronic kidney disease stage: stage 3 (moderate) Qualified Code(s): N18.3 - Chronic kidney disease, stage 3 (moderate) Is this a current diagnosis for this admission?: Yes Plan: Remains at stage III. Continue to monitor renal function. (4) Hyperlipidemia Qualifiers: Hyperlipidemia type: unspecified Qualified Code(s): E78.5 - Hyperlipidemia, unspecified Is this a current diagnosis for this admission?: Yes Plan: Continue atorvastatin (5) Hypertension Qualifiers: Hypertension type: essential hypertension Qualified Code(s): I10 - Essential (primary) hypertension Is this a current diagnosis for this admission?: Yes Plan: Resume atenolol and nifedipine (6) Hypothyroidism Qualifiers: Hypothyroidism type: unspecified Qualified Code(s): E03.9 - Hypothyroidism, unspecified Is this a current diagnosis for this admission?: Yes Plan: Continue levothyroxine 88 mcg daily. - Plan Summary Summary: Patient will be admitted to the medical floor where she will receive routine supportive and symptomatic cares. Current medications will be discontinued. Patient will receive Ativan 1 mg IV every 4 hours as needed for anxiety or restlessness. She will receive Haldol 5 mg IV every 4 hours as needed for agitation. She will receive intravenous hydralazine and/or metoprolol as needed for hypertension. She will receive a cardiac diet. A lipid profile and thyroid profile will be obtained. CBCs, metabolic profiles, magnesium levels and additional radiographic and/or laboratory evaluations will be obtained as appropriate. Case management will continue to work towards finding an acceptable long-term placement for this patient. A speech therapy consul tation for evaluation of the patient's swallow will be obtained. PT and OT consultations will also be obtained. - Time Time Spent with patient: Less than 15 minutes Medications reviewed and adjusted accordingly: Yes Anticipated Discharge Disposition: [facility] Anticipated Discharge Timeframe: when bed available
[2019-12-23] MEDS ORDERED: LEVOTHYROXINE SODIUM INJ/PF 0.1 MG SDV IV SCH (06:00)
[2019-12-23] MEDS: DEXTROSE 5%-LACTATED RINGERS 1,000 ML IV PRN ×2 (06:23→21:51)
[2019-12-23] MEDS: HEPARIN SOD (PORCINE) 5,000 UNIT/ML 1 ML VIAL SUBCUT SCH ×3 (06:25→21:46)
[2019-12-23] MEDS: FAMOTIDINE INJ/PF 20 MG/2 ML SDV IV SCH ×2 (09:44→21:48)
[2019-12-23] MEDS ORDERED: (PENDING PHARMACY ID) (Memantine Hcl [Namenda] 5 MG) PO SCH (10:00)
[2019-12-23] MEDS ORDERED: NIFEDIPINE 30 MG TAB.ER.24 PO SCH (10:00)
[2019-12-23] MEDS ORDERED: (PENDING PHARMACY ID) (Nifedipine [Nifedipine Er] 60 MG) PO SCH (10:00)
[2019-12-23] MEDS: MEMANTINE HCL 10 MG TABLET PO SCH ×2 (11:31→21:49)
[2019-12-23] MEDS: NIFEDIPINE 30 MG TAB.ER.24 PO SCH (11:31)
[2019-12-23] MEDS: ATENOLOL 50 MG TABLET PO SCH (11:33)
[2019-12-23] MEDS: CETIRIZINE 10 MG TABLET PO SCH (11:44)
--- NOTE | 2019-12-23 12:56 | PDOC PROGRESS REPORT ---
Subjective Progress Note for:: 12/23/19 Subjective:: Still somnolent but not moaning and groaning. Reason For Visit: ACUTE ENCEPHALOPATHY Physical Exam Vital Signs: Temp Pulse Resp BP Pulse Ox 98.2 F 60 14 188/52 H 100 12/23/19 10:00 12/23/19 08:00 12/23/19 08:00 12/23/19 08:00 12/23/19 08:00 Intake & Output 12/22/19 12/23/19 12/24/19 06:59 06:59 06:59 Intake Total 500 4000 Output Total 0 0 Balance 500 4000 Weight 49.1 kg 49.1 kg General appearance: PRESENT: no acute distress, other - No longer moaning and groaning however hardly opens her eyes to verbal stimulus. Head exam: PRESENT: atraumatic, normocephalic Eye exam: PRESENT: other - Daughter reports there were giving drops for left eye infection. No purulence at this encounter but the nurse did report wiping discharge from the eye. Ear exam: PRESENT: normal external ear exam. ABSENT: bleeding, drainage Mouth exam: PRESENT: dry mucosa, tongue midline Respiratory exam: PRESENT: clear to auscultation sulema, symmetrical, unlabored. ABSENT: rales, rhonchi, tachypnea, wheezes Cardiovascular exam: PRESENT: RRR, +S2. ABSENT: bradycardia, diastolic murmur, irregular rhythm, systolic murmur, tachycardia GI/Abdominal exam: PRESENT: normal bowel sounds, other - Colostomy. ABSENT: distended, tenderness Extremities exam: ABSENT: pedal edema Musculoskeletal exam: ABSENT: ambulatory Neurological exam: ABSENT: awake Psychiatric exam: PRESENT: other - Unable to assess Focused psych exam: PRESENT: other - Minimal interaction Results Laboratory Results: 12/22/19 04:11 12/22/19 04:11 12/15/19 12/15/19 09:01 09:01 Creatine Kinase 144 H CK-MB (CK-2) 5.30 H Troponin I 0.026 Impressions: Head CT 12/15/19 09:09 IMPRESSION: MILD CHRONIC CHANGES OF ATROPHY AND MICROVASCULAR ISCHEMIA. NO ACUTE PROCESS. EVIDENCE OF ACUTE STROKE: NO. Chest X-Ray 12/21/19 18:58 IMPRESSION: Persistent left basilar airspace disease -confluent opacity. No significant pleural effusion. Assessment and Plan - Diagnosis (1) Dementia with behavioral disturbance Qualifiers: Dementia type: unspecified type Qualified Code(s): F03.91 - Unspecified dementia with behavioral disturbance Is this a current diagnosis for this admission?: Yes Plan: Currently letting medications wear off. Had a 30-minute discussion with the daughter. They are having difficulties with placement due to her colostomy. She had a place in [place] by her son and they reported moving her back because they were unhappy with the facility. At this point she is no longer moaning and groaning. Her Depakote level is subtherapeutic. The daughter r eports that she is had seizure-like activity in the past but this does not appear to be any type of seizure. I would still allow medications to wear off and treat her as she recovers from this episode. Unfortunately her of 63 years in August. This could be her spiral and decline without her . I did discuss this with the daughter. She is in fact DNR and has, according to her daughter, a document stating so. I did mention that it may be time to think about a hospice level of care. (2) Acute metabolic encephalopathy Is this a current diagnosis for this admission?: Yes Plan: Her Depakote level was subtherapeutic however it is impossible to tell if this is related to the medication or a true metabolic effect or an acute decline in her condition due to her dementia and the recent loss of her . She had a mild acute kidney injury on admission to the emergency department. As we picked up on our service her renal function had improved. Her white blood cell count was normal. There was no evidence of infection. We will continue to monitor for progress and treat the patient in hopes of some type of recovery. (3) Chronic kidney disease Qualifiers: Chronic kidney disease stage: stage 3 (moderate) Qualified Code(s): N18.3 - Chronic kidney disease, stage 3 (moderate) Is this a current diagnosis for this admission?: Yes Plan: Currently at baseline. (4) Hyperlipidemia Qualifiers: Hyperlipidemia type: unspecified Qualified Code(s): E78.5 - Hyperlipidemia, unspecified Is this a current diagnosis for this admission?: Yes Plan: Continue statin therapy (5) Hypertension Qualifiers: Hypertension type: essential hypertension Qualified Code(s): I10 - Essential (primary) hypertension Is this a current diagnosis for this admission?: Yes Plan: Blood pressure still high. This is likely due to her inability to safely swallow. If her swallow does not recover then serious consideration needs to be given to hospice care. (6) Hypothyroidism Qualifiers: Hypothyroidism type: unspecified Qualified Code(s): E03.9 - Hypothyroidism, unspecified Is this a current diagnosis for this admission?: Yes Plan: Continue levothyroxine. TSH was normal. (7) Malnutrition Qualifiers: Malnutrition type: protein-calorie malnutrition Protein-calorie malnutrition severity: moderate Qualified Code(s): E44.0 - Moderate protein- calorie malnutrition Is this a current diagnosis for this admission?: Yes Plan: This is mostly the result of her level of consciousness and inability to swallow safely. I certainly would not encourage an NG tube or PEG tube but rather hospice level care - Plan Summary Summary: Patient will be admitted to the medical floor where she will receive routine supportive and symptomatic cares. Current medications will be discontinued. Patient will receive Ativan 1 mg IV every 4 hours as needed for anxiety or restlessness. She will receive Haldol 5 mg IV every 4 hours as needed for agitation. She will receive intravenous hydralazine and/or metoprolol as needed for hypertension. She will receive a cardiac diet. A lipid profile and thyroid profile will be obtained. CBCs, metabolic profiles, magnesium levels and additional radiographic and/or laboratory evaluations will be obtained as appropriate. Case management will continue to work towards finding an acceptable alf placement for this patient. A speech therapy consultation for evaluation of the patient's swallow will be obtained. PT and OT consultations will also be obtained. - Time Time Spent with patient: 35 or more minutes Medications reviewed and adjusted accordingly: Yes Anticipated Discharge Disposition: [facility] - Possibly hospice Anticipated Discharge Timeframe: Unknown
[2019-12-23] MEDS ORDERED: BISACODYL 10 MG SUPP.RECT PR ONE ×2 (14:00→16:00)
[2019-12-23] MEDS: ATORVASTATIN CALCIUM 20 MG TABLET PO SCH (21:49)
--- NOTE | 2019-12-23 23:43 | CDI QUERY ---
CDI Query CDI Review: We are seeking further clarification of documentation to reflect the severity of illness of your patient. Noted in the H&P and Progress Notes: Acute metabolic encephalopathy Is this a current diagnosis for this admission?: Yes Plan: Possibly from medications. We will check a Depakote level. Based on your medical judgement, can you confirm in the Progress Notes if the Metabolic Encephalopathy was due to medications. Toxic Encephalopathy 2/2 to medications (please indicate medications if known) Metabolic Encephalopathy Other condition (please specify) Unable to determine Thank you for your consideration. ADALID Spann RN Clinical Shuttle Fitting Supervisor Physician Advisor [email or web address]
[2019-12-24] MEDS: LEVOTHYROXINE SODIUM 0.088 MG TABLET PO SCH (05:00)
[2019-12-24] MEDS: HEPARIN SOD (PORCINE) 5,000 UNIT/ML 1 ML VIAL SUBCUT SCH ×3 (05:00→21:43)
[2019-12-24] MEDS: DEXTROSE 5%-LACTATED RINGERS 1,000 ML IV PRN ×2 (05:11→13:01)
[2019-12-24 06:04] LABS: ABSOLUTE EOSINOPHILS # (AUTO) 0.1 10^3/uL (0.0-0.6); ABSOLUTE MONOCYTES (AUTO) 0.5 10^3/uL (0.1-1.4); ABSOLUTE NEUT (AUTO) 3.4 10^3/uL (1.7-8.2); BASOPHILS % (AUTO) 0.5 % (0-2); EOSINOPHILS % (AUTO) 2.9 % (0-6); HEMATOCRIT 36.3 % (36.0-47.0); HEMOGLOBIN 12.5 g/dL (12.0-15.5); LYMPHOCYTES % (AUTO) 20.1 % (13-45); MEAN CORPUSCULAR HEMOGLOBIN 29.9 pg (27.0-33.4); MEAN CORPUSCULAR HGB CONC 34.3 g/dL (32.0-36.0); MEAN CORPUSCULAR VOLUME 87 fl (80-97); MONOCYTES % (AUTO) 10.4 % (3-13); PLATELET COUNT 124 10^3/uL (150-450); RED BLOOD COUNT 4.16 10^6/uL (3.72-5.28); RED CELL DISTRIBUTION WIDTH 14.9 % (11.5-14.0); SEGMENTED NEUTROPHILS % (AUTO) 66.1 % (42-78); TOTAL CELLS COUNTED % (AUTO) 100 %; WHITE BLOOD COUNT 5.2 10^3/uL (4.0-10.5)
[2019-12-24 06:26] LABS: ANION GAP 5 (5-19); BLOOD UREA NITROGEN 7 mg/dL (7-20); CALCIUM 8.5 mg/dL (8.4-10.2); CARBON DIOXIDE 27 mmol/L (22-30); CHLORIDE 109 mmol/L (98-107); GLUCOSE 109 mg/dL (75-110); POTASSIUM 3.4 mmol/L (3.6-5.0)
[2019-12-24] MEDS: MEMANTINE HCL 10 MG TABLET PO SCH ×2 (10:21→21:44)
[2019-12-24] MEDS: NIFEDIPINE 30 MG TAB.ER.24 PO SCH (10:22)
[2019-12-24] MEDS: ATENOLOL 50 MG TABLET PO SCH (10:22)
[2019-12-24] MEDS: CETIRIZINE 10 MG TABLET PO SCH (10:22)
[2019-12-24] MEDS: FAMOTIDINE INJ/PF 20 MG/2 ML SDV IV SCH ×2 (10:26→21:47)
[2019-12-24] MEDS ORDERED: CLONIDINE 0.1 MG/24 HR PATCH.TDWK TD SCH ×2 (11:30→18:00)
--- NOTE | 2019-12-24 18:38 | PDOC PROGRESS REPORT ---
Subjective Progress Note for:: 12/24/19 Subjective:: Patient was seen on morning rounds. She is found resting bed, comfortably, on room air. She did not open her eyes or respond to me upon calling her name very loudly and shaking her shoulder. She did briefly grimace and pull away with sternal rub but otherwise did not interact with me. Shortly later, she was overheard to be crying during position changing, however, was not responsive to nursing questions or following directions. ROS is limited secondary to mental status. She does appear to be comfortable and not noted to be in any acute distress. Nursing called this afternoon to stat family was at bedside requesting to speak with me; unfortunately, family had left by the time of my arrival ~1.5-2 hrs later. Reason For Visit: ACUTE ENCEPHALOPATHY Physical Exam Vital Signs: Temp Pulse Resp BP Pulse Ox 98.1 F 72 16 122/83 94 12/24/19 16:00 12/24/19 11:20 12/24/19 16:00 12/24/19 11:20 12/24/19 16:00 Intake & Output 12/23/19 12/24/19 12/25/19 06:59 06:59 06:59 Intake Total 4000 2000 1000 Output Total 0 Balance 4000 2000 1000 Weight 49.1 kg 49.1 kg General appearance: PRESENT: no acute distress, well-developed, well-nourished Head exam: PRESENT: atraumatic, normocephalic Eye exam: PRESENT: conjunctiva pink Mouth exam: PRESENT: dry mucosa, tongue midline Respiratory exam: PRESENT: clear to auscultation sulema, symmetrical, unlabored. ABSENT: rales, rhonchi, wheezes Cardiovascular exam: PRESENT: RRR. ABSENT: diastolic murmur, rubs, systolic murmur Pulses: PRESENT: normal dorsalis pedis pul Vascular exam: PRESENT: normal capillary refill GI/Abdominal exam: PRESENT: normal bowel sounds, soft, other - colostomy. ABSENT: distended, guarding, mass, organolmegaly, rebound, tenderness Rectal exam: PRESENT: deferred Extremities exam: PRESENT: full ROM. ABSENT: calf tenderness, clubbing, pedal edema Neurological exam: PRESENT: other - arousable; does not open eyes or follow directions. Moans/cries with position changes. Does not repsond to oral stimulation/attempts to feed. ABSENT: motor sensory deficit Psychiatric exam: PRESENT: appropriate affect, normal mood. ABSENT: homicidal ideation, suicidal ideation Skin exam: PRESENT: dry, intact, warm. ABSENT: cyanosis, rash Results Laboratory Results: 12/24/19 04:39 12/24/19 04:39 12/24/19 12/24/19 04:39 04:39 WBC 5.2 RBC 4.16 Hgb 12.5 Hct 36.3 MCV 87 MCH 29.9 MCHC 34.3 RDW 14.9 H Plt Count 124 L Seg Neutrophils % 66.1 Sodium 141.4 Potassium 3.4 L Chloride 109 H Carbon Dioxide 27 Anion Gap 5 BUN 7 Creatinine 0.81 Est GFR ( Amer) > 60 Glucose 109 Calcium 8.5 Magnesium 1.4 L 12/15/19 12/15/19 09:01 09:01 Creatine Kinase 144 H CK-MB (CK-2) 5.30 H Troponin I 0.026 Impressions: Head CT 12/15/19 09:09 IMPRESSION: MILD CHRONIC CHANGES OF ATROPHY AND MICROVASCULAR ISCHEMIA. NO ACUTE PROCESS. EVIDENCE OF ACUTE STROKE: NO. Chest X-Ray 12/21/19 18:58 IMPRESSION: Persistent left basilar airspace disease -confluent opacity. No significant pleural effusion. Assessment and Plan - Diagnosis (1) Acute metabolic encephalopathy Is this a current diagnosis for this admission?: Yes Plan: Her Depakote level was subtherapeutic however it is impossible to tell if this is related to the medication or a true metabolic effect or an acute decline in her condition due to her dementia and the recent loss of her . No longer on Depakote. She had a mild acute kidney injury on admission to the emergency department; now resolved. There was no evidence of infection. Supportive care. Fall precautions. (2) Dementia with behavioral disturbance Qualifiers: Dementia type: unspecified type Qualified Code(s): F03.91 - Unspecified dementia with behavioral disturbance Is this a current diagnosis for this admission?: Yes Plan: Previous provider had a 30-minute discussion with the daughter. They are having difficulties with placement due to her colostomy. She had a place in [place] by her son and they reported moving her back because they were unhappy with the facility. Her Depakote level is subtherapeutic. The daughter reports that she is had seizure-like activity in the past but this does not appear to be any type of seizure. I would still allow medications to wear off and treat her as she recovers from this episode. Unfortunately her of 63 years in August. This could be her spiral and decline without her . I did discuss this with the daughter. She is in fact DNR and has, according to her daughter, a document stating so. Provider did mention that it may be time to think about a hospice level of care. Last Ativan ~36 hrs ago Last Depakote ~72 hrs ago Supportive care. Discharge planning consulted. Hospice appropriate. (3) Hypothyroidism Qualifiers: Hypothyroidism type: unspecified Qualified Code(s): E03.9 - Hypothyroidism, unspecified Is this a current diagnosis for this admission?: Yes Plan: TSH was normal. Continue home dose levothyroxine; unfortunately, no longer taking p.o. secondary to mentation. (4) Malnutrition Qualifiers: Malnutrition type: protein-calorie malnutrition Protein-calorie malnutrition severity: moderate Qualified Code(s): E44.0 - Moderate protein- calorie malnutrition Is this a current diagnosis for this admission?: Yes Plan: This is mostly the result of her level of consciousness and inability to swallow safely. I certainly would not encourage an NG tube or PEG tube but rather hospice level care (5) Chronic kidney disease Qualifiers: Chronic kidney disease stage: stage 3 (moderate) Qualified Code(s): N18.3 - Chronic kidney disease, stage 3 (moderate) Is this a current diagnosis for this admission?: Yes Plan: Currently at baseline. (6) Hyperlipidemia Qualifiers: Hyperlipidemia type: unspecified Qualified Code(s): E78.5 - Hyperlipidemia, unspecified Is this a current diagnosis for this admission?: Yes Plan: Continue statin therapy (7) Hypertension Qualifiers: Hypertension type: essential hypertension Qualified Code(s): I10 - Essential (primary) hypertension Is this a current diagnosis for this admission?: Yes Plan: Blood pressure still high. This is likely due to her inability to safely swallow. If her swallow does not recover then serious consideration needs to be given to hospice care. Will start clonidine transdermal patch. - Time Time Spent with patient: 35 or more minutes Medications reviewed and adjusted accordingly: Yes Anticipated Discharge Disposition: Retirement Facility - w/ hospice Anticipated Discharge Timeframe: when bed available - Need family input
[2019-12-24] MEDS: ATORVASTATIN CALCIUM 20 MG TABLET PO SCH (21:44)
[2019-12-24] MEDS: POTASSI CL 20 MEQ/50 ML RIDER 20 MEQ/50 ML RTUPB IV SCH (22:10)
[2019-12-25] MEDS: POTASSI CL 20 MEQ/50 ML RIDER 20 MEQ/50 ML RTUPB IV SCH
[2019-12-25] MEDS: HEPARIN SOD (PORCINE) 5,000 UNIT/ML 1 ML VIAL SUBCUT SCH ×2 (05:21→13:21)
[2019-12-25] MEDS: LEVOTHYROXINE SODIUM 0.088 MG TABLET PO SCH (05:22)
[2019-12-25] MEDS: DEXTROSE 5%-LACTATED RINGERS 1,000 ML IV PRN (09:50)
[2019-12-25] MEDS: HYDRALAZINE HCL INJ/PF 20 MG/1 ML SDV IV PRN (09:50)
[2019-12-25] MEDS: FAMOTIDINE INJ/PF 20 MG/2 ML SDV IV SCH ×2 (09:50→21:20)
[2019-12-25] MEDS: MEMANTINE HCL 10 MG TABLET PO SCH (09:57)
[2019-12-25] MEDS: NIFEDIPINE 30 MG TAB.ER.24 PO SCH (09:58)
[2019-12-25] MEDS: CETIRIZINE 10 MG TABLET PO SCH (09:58)
[2019-12-25] MEDS: ATENOLOL 50 MG TABLET PO SCH (09:58)
[2019-12-25] MEDS ORDERED: DEXTROSE 5%-LACTATED RINGERS 1,000 ML IV PRN (16:04)
--- NOTE | 2019-12-25 16:15 | PDOC PROGRESS REPORT ---
Subjective Progress Note for:: 12/25/19 Subjective:: Patient was seen on afternoon rounds with daughter present. Ginger, MACHINE ASSEMBLER SUPERVISOR, also present to discuss goals of care. She is found resting bed, comfortably, on room air. She did not open her eyes or respond to me. She is moaning and per nursing cries with position changes. ROS is limited secondary to mental status. She does not appear to be in any acute distress. Discussed patient's chronic medical conditions, current clinical status, and lack of improvement over the course of her admission. Daughter states that she spoke with her brother and both are in agreement that they do not want any artificial nutrition (NG, PEG tube) and she relates that her mother had recently stated that she is ready to join her again. We discussed options for discharge home with hospice versus SNF with hospice versus inpatient hospice. Daughter is interested in inpatient hospice facility and I do believe that she will meet criteria for admission. Discussed transitioning to comfort care; daughter is in agreement. Reason For Visit: ACUTE ENCEPHALOPATHY Physical Exam Vital Signs: Temp Pulse Resp BP Pulse Ox 97.8 F 88 19 139/47 H 96 12/25/19 11:36 12/25/19 11:36 12/25/19 11:36 12/25/19 11:36 12/25/19 11:36 Intake & Output 12/24/19 12/25/19 12/26/19 06:59 06:59 06:59 Intake Total 1999 1046 991 Balance 1999 1046 991 Weight 49.1 kg 49.1 kg General appearance: PRESENT: mild distress - Pain, well-developed, well- nourished Head exam: PRESENT: atraumatic, normocephalic Eye exam: PRESENT: conjunctiva pink, EOMI, PERRLA. ABSENT: scleral icterus Mouth exam: PRESENT: dry mucosa, tongue midline Respiratory exam: PRESENT: clear to auscultation sulema, symmetrical, unlabored. ABSENT: rales, rhonchi, wheezes Cardiovascular exam: PRESENT: RRR. ABSENT: diastolic murmur, rubs, systolic murmur Pulses: PRESENT: normal dorsalis pedis pul Vascular exam: PRESENT: normal capillary refill GI/Abdominal exam: PRESENT: hypoactive bowel sounds, soft, other - Colostomy. ABSENT: distended, mass, organolmegaly Rectal exam: PRESENT: deferred Extremities exam: PRESENT: full ROM - Moves all extremities spontaneously. ABSENT: calf tenderness, clubbing, pedal edema Neurological exam: PRESENT: other - Arousable; does not open eyes, answer questi ons, follow directions. Moans/cries with position changes. Does not repsond to oral stimulation/attempts to feed. Skin exam: PRESENT: dry, intact, warm. ABSENT: cyanosis, rash Results Laboratory Results: 12/24/19 04:39 12/24/19 04:39 12/15/19 12/15/19 09:01 09:01 Creatine Kinase 144 H CK-MB (CK-2) 5.30 H Troponin I 0.026 Impressions: Head CT 12/15/19 09:09 IMPRESSION: MILD CHRONIC CHANGES OF ATROPHY AND MICROVASCULAR ISCHEMIA. NO ACUTE PROCESS. EVIDENCE OF ACUTE STROKE: NO. Chest X-Ray 12/21/19 18:58 IMPRESSION: Persistent left basilar airspace disease -confluent opacity. No significant pleural effusion. Assessment and Plan - Diagnosis (1) Dementia with behavioral disturbance Qualifiers: Dementia type: unspecified type Qualified Code(s): F03.91 - Unspecified dementia with behavioral disturbance Is this a current diagnosis for this admission?: Yes Plan: Previous provider had a 30-minute discussion with the daughter. They are having difficulties with placement due to her colostomy. She had a place in [place] by her son and they reported moving her back because they were unhappy with the facility. Her Depakote level is subtherapeutic. The daughter reports that she is had seizure-like activity in the past but this does not appear to be any type of sei zure. I would still allow medications to wear off and treat her as she recovers from this episode. Unfortunately her of 63 years in August. This could be her spiral and decline without her . I did discuss this with the daughter. She is in fact DNR and has, according to her daughter, a document stating so. Provider did mention that it may be time to think about a hospice level of care. Last Ativan >48 hrs ago Last Depakote > 96 hrs ago Supportive care. Discharge planning consulted. Hospice appropriate; discussed with daughter today. She is in agreement. We will transition to comfort care measures.. (2) Acute metabolic encephalopathy Is this a current diagnosis for this admission?: Yes Plan: Her Depakote level was subtherapeutic however it is impossible to tell if this is related to the medication or a true metabolic effect or an acute decline in her condition due to her dementia and the recent loss of her . No longer on Depakote. She had a mild acute kidney injury on admission to the emergency department; now resolved. There was no evidence of infection. Likely evidence of progressing dementia. Supportive care. Fall precautions. (3) Hypothyroidism Qualifiers: Hypothyroidism type: unspecified Qualified Code(s): E03.9 - Hypothyroidism, unspecified Is this a current diagnosis for this admission?: Yes Plan: TSH was normal. Continue home dose levothyroxine; unfortunately, no longer taking p.o. secondary to mentation. (4) Malnutrition Qualifiers: Malnutrition type: protein-calorie malnutrition Protein-calorie malnutrition severity: moderate Qualified Code(s): E44.0 - Moderate protein- calorie malnutrition Is this a current diagnosis for this admission?: Yes Plan: This is mostly the result of her level of consciousness and inability to swallow safely. I certainly would not encourage an NG tube or PEG tube but rather hospice level care (5) Chronic kidney disease Qualifiers: Chronic kidney disease stage: stage 3 (moderate) Qualified Code(s): N18.3 - Chronic kidney disease, stage 3 (moderate) Is this a current diagnosis for this admission?: Yes Plan: Currently at baseline. (6) Hyperlipidemia Qualifiers: Hyperlipidemia type: unspecified Qualified Code(s): E78.5 - Hyperlipidemia, unspecified Is this a current diagnosis for this admission?: Yes Plan: Continue statin therapy (7) Hypertension Qualifiers: Hypertension type: essential hypertension Qualified Code(s): I10 - Essential (primary) hypertension Is this a current diagnosis for this admission?: Yes Plan: Blood pressure still high. This is likely due to her inability to safely swallow. If her swallow does not recover then serious consideration needs to be given to hospice care. Will start clonidine transdermal patch; blood pressure is improved. - Time Time Spent with patient: 35 or more minutes Medications reviewed and adjusted accordingly: Yes Anticipated Discharge Disposition: Hospice Center Anticipated Discharge Timeframe: when bed available
[2019-12-25] MEDS: MORPHINE SULFATE 10 MG/ML INJ IV PRN ×2 (17:02→20:26)
[2019-12-25] MEDS: LORAZEPAM INJ 2 MG/1 ML VIAL IV PRN (18:24)
[2019-12-25] MEDS: ATORVASTATIN CALCIUM 20 MG TABLET PO SCH (21:20)
[2019-12-26] MEDS: LORAZEPAM INJ 2 MG/1 ML VIAL IV PRN ×2 (00:05→18:58)
--- NOTE | 2019-12-26 08:06 | ADVANCED CARE ---
- Diagnosis (1) Dementia with behavioral disturbance Diagnosis Current: Yes (2) Acute metabolic encephalopathy Diagnosis Current: Yes (3) Hypothyroidism Diagnosis Current: Yes (4) Malnutrition Diagnosis Current: Yes (5) Chronic kidney disease Diagnosis Current: Yes (6) Hyperlipidemia Diagnosis Current: Yes (7) Hypertension Diagnosis Current: Yes Attendance: Patient's daughter, Isma Vidal, and Ginger Estrada (ORTHODONTIC TECHNICIAN ASSISTANT) Resuscitation Status: Do Not Resuscitate Discussion: Discussed the patient's underlying medical conditions and rapid physical/mental decline since the patient's earlier this year. We discussed the patient's work up/clinical progress since her admission, as well as, the time she spent as a social hold in the emergency department prior. Ms Vidal states that her mother has previously indicated that she would not want life prolonging measures undertaken and that she "was ready to join her ." Primary goal is to ensure that her mother (the patient) does not suffer. She asks that we ensure she is comfortable. We discussed patient's hospice-appropriate status (no oral intake >5 days, altered mental status, and physical discomfort requiring medications). We discussed options including home w/ hospice, SNF w/ hospice, and inpatient hospice services. Ms. Vidal is interested in having her mother evaluated for inpatient hospice admission and plans to discuss the local facilities with her brother ramsey; will let us know their preference tomorrow. In the interim, she is agreeable to transitioning to comfort care measures. Care Planning Goals: DNR Transition to Comfort Measures Only. Inpatient Hospice referrals. Time Spent: 40 min
[2019-12-26] MEDS: FAMOTIDINE INJ/PF 20 MG/2 ML SDV IV SCH (09:44)
--- NOTE | 2019-12-26 15:00 | PDOC TRANSFER SUMMARY ---
General - Admit/Disc Date/PCP Admission Date/Primary Care Provider: 12/21/19 20:55 HENRY BROWNE MD Discharge Date: 12/26/19 - Discharge Diagnosis (1) Dementia with behavioral disturbance Is this a current diagnosis for this admission?: Yes (2) Acute metabolic encephalopathy Is this a current diagnosis for this admission?: Yes (3) Hypothyroidism Is this a current diagnosis for this admission?: Yes (4) Malnutrition Is this a current diagnosis for this admission?: Yes (5) Chronic kidney disease Is this a current diagnosis for this admission?: Yes (6) Hyperlipidemia Is this a current diagnosis for this admission?: Yes (7) Hypertension Is this a current diagnosis for this admission?: Yes - Additional Information Resuscitation Status: Do Not Resuscitate Discharge Diet: As Tolerated Discharge Activity: Activity As Tolerated Home Medications: Acetaminophen [Tylenol 650 mg Supp] 650 mg VT Q4HP PRN supp.rect 12/26/19 Famotidine/Pf [Pepcid Inj/Pf 20 mg/2 ml Sdv] 20 mg IV Q12 vial 12/26/19 Lorazepam [Ativan Inj 2 mg/1 ml Vial] 2 mg IV Q6HP PRN vial 12/26/19 Morphine Sulfate [Morphine 10 mg/ml Inj] 1 mg IV Q2HP PRN vial 12/26/19 Promethazine HCl [Phenergan Inj 25 mg/1 ml Vial] 6.25 mg IV Q4HP PRN vial 12/26/19 History of Present Illness Admission Date/PCP: 12/21/19 20:55 HENRY BROWNE MD History of Present Illness: Per H&P by Dr. Zuniga: SHADE QUICK is a 84 year old female who initially presented to the emergency room on 12/15/2019 with a near syncopal episode. Patient has severe dementia and is unable to contribute to her medical history. In the emergency room she was evaluated and attempts at arranging placement and a fdc were undertaken. Over the course of time in the emergency room her psychiatric medications were changed at the direction of the psychiatrist who was consulted by ER physician. Since her medication change ER staff is noted a change in her mental status as she has become much more somnolent and less responsive to stimuli. When she is aroused she remains combative. Her oral intake has been drastically decreased and this is of concern to the ER provider staff such that they have requested that she be admitted to the hospital for additional treatment prior to placement in a nursing care facility. The patient was accepted to the hospitalist service by the emergency medical service manager Dr. Brandon Samson. Hospital Course Hospital Course: (1) Dementia with behavioral disturbance Patient with rapid mental and physical decline this year following of her of 63 years. She presented to the ED due to poor p.o. intake, increased confusion, and increased combative behavior with difficulty finding SNF placement related to her colostomy and dementia w/ behavior diagnosis. During her time in the ED (social hold) and admission, the patient became increasing somnolent and eventually non-responsive. Workup was unrevealing for acute/reversible causes. Multiple discussions had with family regarding patient rapidly advancing de mentia and prognosis. Family has elected to transition to comfort care measures and to transfer into inpatient hospice services. Fortunately, patient has been accepted to [facility]. (2) Acute metabolic encephalopathy Her Depakote level was subtherapeutic however it is impossible to tell if this is related to the medication or a true metabolic effect or an acute decline in her condition due to her dementia and the recent loss of her . No longer on Depakote. She had a mild acute kidney injury on admission to the emergency department; now resolved. There was no evidence of infection. Likely evidence of progressing dementia. Sedating medications were held >72 hrs, no improvement in mentation. Supportive care. Fall precautions. (3) Hypothyroidism TSH was normal. Continue home dose levothyroxine; unfortunately, no longer taking p.o. secondary to mentation. (4) Malnutrition Family has declined alternate means of nutrition and has requested transition to comfort care measures. (5) Chronic kidney disease Currently at baseline. (6) Hyperlipidemia (7) Hypertension Started clonidine transdermal patch; blood pressure is improved. Physical Exam Vital Signs: Temp Pulse Resp BP Pulse Ox 97.7 F 74 14 145/51 H 97 12/26/19 11:37 12/26/19 11:37 12/26/19 11:37 12/26/19 11:37 12/26/19 11:37 Intake & Output 12/25/19 12/26/19 12/27/19 06:59 06:59 06:59 Intake Total 1046 1990 Balance 1046 1990 Weight 49.1 kg 47.9 kg General appearance: PRESENT: no acute distress, well-developed, well-nourished Head exam: PRESENT: atraumatic, normocephalic Eye exam: PRESENT: conjunctiva pink, EOMI, PERRLA. ABSENT: scleral icterus Mouth exam: PRESENT: dry mucosa, tongue midline Respiratory exam: PRESENT: decreased breath sounds - throughout, symmetrical, unlabored. ABSENT: rales, rhonchi, wheezes Cardiovascular exam: PRESENT: RRR. ABSENT: diastolic murmur, rubs, systolic murmur GI/Abdominal exam: PRESENT: hypoactive bowel sounds, soft. ABSENT: distended, guarding, mass, organolmegaly, rebound, tenderness Rectal exam: PRESENT: deferred Extremities exam: ABSENT: calf tenderness, clubbing, pedal edema Neurological exam: PRESENT: other - Arousable; does not open eyes, answer questions, follow directions. Moans/cries with position changes. Does not repsond to oral stimulation/attempts to feed.. ABSENT: motor sensory deficit Skin exam: PRESENT: dry, intact, warm. ABSENT: cyanosis, rash Results Laboratory Results: 12/24/19 04:39 12/24/19 04:39 12/15/19 12/15/19 09:01 09:01 Creatine Kinase 144 H CK-MB (CK-2) 5.30 H Troponin I 0.026 Impressions: Head CT 12/15/19 09:09 IMPRESSION: MILD CHRONIC CHANGES OF ATROPHY AND MICROVASCULAR ISCHEMIA. NO ACUTE PROCESS. EVIDENCE OF ACUTE STROKE: NO. Chest X-Ray 12/21/19 18:58 IMPRESSION: Persistent left basilar airspace disease -confluent opacity. No significant pleural effusion. Transfer Plan - Time Spent with Patient Time spent with patient: Less than 30 Minutes Qualifiers PATIENT BEING DISCHARGED WITH ANY OF THE FOLLOWING DIAGNOSIS: No Plan Discharge Plan: Transfer to [facility] for inpatient hospice care. Time Spent: Greater than 30 Minutes
[2019-12-26 17:26] VITALS: BP 170/59
== END 2019-12-26 19:50 | disposition hospice, inpatient (51) | DRG 884 ==
LOC: ER 08:51 → EH 12-21 20:55 → 4N 12-22 00:32
PROVIDERS: ADMIT Emergency Medicine; ATTEND Registered Nurse
DX: F03.91 Unspecified dementia, unspecified severity, with behavioral disturbance (principal); G93.41 Metabolic encephalopathy; E44.0 Moderate protein-calorie malnutrition; I12.9 Hypertensive chronic kidney disease with stage 1 through stage 4 chronic kidney disease, or unspecified chronic kidney disease; R55 Syncope and collapse; N18.3 Chronic kidney disease, stage 3 (moderate); E03.9 Hypothyroidism, unspecified; E78.00 Pure hypercholesterolemia, unspecified; Z88.8 Allergy status to other drugs, medicaments and biological substances; Z11.59 Encounter for screening for other viral diseases; Z90.5 Acquired absence of kidney
CPT/HCPCS: 36415; 70450; 71045; 80048; 80053; 80061; 80164; 81001; 82550; 82553; 82962; 83735; 84443; 84481; 84484; 85025; 85027; 87070; 87635; 93005; 93010; 96374; 99285; C9803; J0360; J1644; J2060; J2270; J3480; J3490; J7030; J7040; J7070; J7121; S0028